=== PATIENT | male | born 1960 | race Caucasian/White ===

== ENCOUNTER 2018-12-23 10:25 | Inpatient (IN) | payer MEDICARE, MEDICAID ==
[2018-12-23 12:01] LABS: ABS Eosinophils 0.2 10^3/ul (0-0.6); ABS Lymphocytes 0.7 10^3/ul (1.0-4.8); ABS Monocytes 0.8 10^3/ul (0-0.8); ABS Neutrophils 5.4 10^3/ul (1.5-7.7); Eosinophil % 2.7 %; Hematocrit 36 % (42-52); Hemoglobin 12.3 g/dL (14.0-18.0); Lymphocyte % 9.2 %; Mean Corpuscular HGB Conc 34 g/dL (31-36); Mean Corpuscular Hemoglobin 32 pg (27-31); Mean Corpuscular Volume 93 fL (80-94); Mean Platelet Volume 9.1 fL (7.4-10.4); Nucleated Red Blood Cells % 0.1; Platelet Count 246 10^3/uL (150-450); Red Blood Count 3.88 10^6 /uL (4.18-5.48); Red Cell Distribution Width 17 % (10-15); White Blood Count 7.1 10^3/uL (3.5-10.8)
[2018-12-23 12:22] LABS: ALT 134 U/L (7-52); AST 145 U/L (13-39); Albumin 3.5 g/dL (3.2-5.2); Albumin/Globulin Ratio 1.5 (1-3); Alkaline Phosphatase 664 U/L (34-104); Anion Gap 6 mmol/L (2-11); BUN/Creatinine Ratio 34.2 (8-20); Blood Urea Nitrogen 40 mg/dL (6-24); CO2 Carbon Dioxide 27 mmol/L (22-32); Calcium 9.3 mg/dL (8.6-10.3); Chloride 103 mmol/L (101-111); EGFR African American 77.7 (>60); EGFR Non-African American 64.3 (>60); Globulin 2.3 g/dL (2-4); Glucose 101 mg/dL (70-100); Potassium 4.2 mmol/L (3.5-5.0); Sodium 136 mmol/L (135-145); Total Protein 5.8 g/dL (6.4-8.9)
[2018-12-23 12:36] LABS: Acetaminophen < 15 mcg/mL; Alcohol < 10 mg/dL (<10); Salicylate < 2.50 mg/dL (<30)
[2018-12-23 12:41] LABS: Urine Appearance Clear; Urine Bacteria Absent (Absent); Urine Bilirubin Negative (Negative); Urine Blood 2+ (Negative); Urine Color Amber; Urine Glucose Negative (Negative); Urine Ketones Negative (Negative); Urine Nitrite Negative (Negative); Urine Protein Negative (Negative); Urine Red Blood Cell 3+(>10/hpf) (Absent); Urine Specific Gravity 1.017 (1.010-1.030); Urine Squamous Epithelial Cell Present (Absent); Urine Urobilinogen Positive (Negative); Urine White Blood Cell Trace(0-5/hpf) (Absent)
[2018-12-23 12:51] LABS: TSH (Thyroid Stimulating Horm) 0.63 mcIU/mL (0.34-5.60)
[2018-12-23 12:59] LABS: Urine Benzodiazepine Screen None Detected (None Detect); Urine Opiates Screen None Detected (None Detect)
[2018-12-23 13:42] LABS: Amylase 27 U/L (29-103); Indirect Bilirubin 4.6 mg/dL (0.3-1.0)
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
[2018-12-23] MEDS ORDERED: Iohexol 300* (CONTRAST) 10 ML SDV IV ONE (15:03)
[2018-12-23 17:54] LABS: INR 0.93 (0.82-1.09)
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
[2018-12-24] MEDS: CMCS:Dabigatran CAP(NF) 150 MG CAP PO SCH ×3 (00:41→22:16)
[2018-12-24] MEDS: Cholestyramine Resin* 4 GM POWDER PO SCH ×3 (00:41→22:17)
[2018-12-24] MEDS: Metoprolol Tartrate TAB* 100 MG TAB PO SCH ×3 (00:42→22:16)
--- NOTE | 2018-12-24 04:16 | HP ---
HISTORY AND PHYSICAL: DATE OF ADMISSION: 12/23/18 PRIMARY CARE PROVIDER: There is a note from Dr. Jose Butcher of [place], [place]. ADMITTING PROVIDER: Lionel Berry MD. Please note that Dr. Nikki Linares also has consulted on the patient in the emergency room. CHIEF COMPLAINT: Leg pain, itching, bed bugs. HISTORY OF PRESENT ILLNESS: Abundio Prado is a 58-year-old male with past medical history of atrial fibrillation on Pradaxa, paranoid schizophrenia, overactive bladder, hypertension, hyperlipidemia, who is a resident of [facility] and a limited historian. PMH also includes COPD, former smoker approximately 35 to 40 pack years, obstructive sleep apnea, chronic kidney disease stage 3, GERD, and diabetes mellitus type 2. He complains of itching over the last few weeks and had concern that his legs being injected with 100 mg of [place] corn oil. He does not know the name of the person who did this but they are related to "Chelsea Ryan". He was referred for psychiatric mental health evaluation by [facility] and also had been fixated on bed bugs and that "the NIKHIL is coming to burn his house down". There were no bed bugs found in this room. He was yelling at the staff, seemed anxious and paranoid, but refusing to see Psychiatry. He was noted to be jaundiced on presentation to [facility] Emergency Room and then had eventually a bilirubin of 11.1. His gallbladder ultrasound showed dilatation of the intrahepatic ducts and more mild dilatation of the hepatopancreatic duct. Dr. Almonte or other mental health personnel, possibly Maegan Cuadra and given the lab abnormalities, consultation with hospitalist service. At that time, he has also had a CT abdomen and pelvis with and without contrast that showed 2.7 cm of pancreatic head mass causing compression of the common bile duct and there was recommendation for admission to Behavioral Health Unit with eventual non-urgent ERCP/EUS for further evaluation of the pancreatic head mass given his otherwise clinical stability. Hemodynamically, no leukocytosis or fevers. Reportedly, Mental Health has refused the admission to their facilities and therefore is re-presented to hospitalist service for admission for further workup of his pancreatic head mass and in the setting of active paranoid delusions. He denies any fevers, chills, has had leg pain for the last 3 days and believes he has an infection there as he can feel the white blood cells in the area. PAST MEDICAL HISTORY: 1. Atrial fibrillation. 2. Paranoid schizophrenia. 3. Hypertension. 4. CKD stage 3. 5. Diabetes mellitus type 2. 6. COPD. 7. Former smoker. 8. Obstructive sleep apnea. 9. Hyperlipidemia. 10. GERD. 11. Overactive bladder. MEDICATIONS: Include: 1. Pradaxa 150 mg p.o. b.i.d. 2. Tolterodine tartrate 4 mg 1 tab p.o. daily. 3. Atorvastatin 10 mg daily. 4. Metoprolol 100 mg p.o. b.i.d. 5. Diltiazem 240 mg p.o. a.m. 6. Calcium and vitamin D 600/400 mg Tuesday and Fridays. 7. Docusate 100 mg p.o. b.i.d. 8. Digoxin 125 mg daily. ALLERGIES: Include HEPARIN, GEODON (leg swelling), PROLIXIN (respiratory issues ). FAMILY HISTORY: Unknown in this tangential historian at the moment. SOCIAL HISTORY: The patient does attest to quitting smoking 8 years ago after 35 to 40 years of [id number] day smoking. He denies any alcohol use. Per previous notes, his medical surrogate has been determined to be Alejandra Veliz , phone number [phone] who is his niece. He personally states that he does not have a medical surrogate. He is a full code. REVIEW OF SYSTEMS: Limited as he is a tangential historian, but denies any chest pain, shortness of breath. PHYSICAL EXAMINATION GENERAL APPEARANCE: No acute distress. Walking, sitting in chair. HEENT: Normocephalic, atraumatic. Pupils equally round and reactive to light. Extraocular motions intact. No scleral icterus. LUNGS: Clear to auscultation bilaterally. No wheezing, rales or rhonchi. CARDIOVASCULAR: Irregularly irregular. No murmurs, rubs, or gallops. ABDOMEN: Soft, nontender, nondistended. No rebound. No guarding. No Andrew sign. EXTREMITIES: Warm, well perfused beside 2+ pitting edema in the dependent lower legs. NEUROLOGIC: Cranial nerves II through XII intact. Moving all extremities. SKIN: Excoriations in the lower legs. DIAGNOSTIC STUDIES/LAB DATA: White count 7.1, hemoglobin 12.3, hematocrit 36, platelets 246, INR 0.93. Sodium 136, potassium 4.2, chloride 103, carbon dioxide 27, BUN 40, creatinine 1.17, glucose 101, total bili 11.1, direct bili is 6.5, indirect bili 4.6. AST is 145, ALT 134, alk phos 664, 34. BNP 110, total protein 5.8, albumin 3.5, amylase 27, lipase 42, TSH 0.63. Urinalysis; 2+ blood, positive urobilinogen, 3+ rbc's. Toxicology, salicylate less than 2.5, acetaminophen less than 15, serum alcohol less than 10, no other substance detected on urine screen. Imaging: Gallbladder ultrasound demonstrated pathologic dilatation of the intrahepatic biliary ducts as well as more mild dilatation of the pancreatic duct. No definitive structure mass or gallbladder stone was identified to account for the appearance, further characterization could be made with 4-phase CT of the abdomen or MRCP. CT abdomen and pelvis with and without contrast with arterial portal venous phase and delayed phase in between the abdomen demonstrated a 2.7 cm pancreatic head mass that appears to be causing compression of the common bile duct, yielding massive dilatation of the biliary ducts as well as the gallbladder, this does not seem to be malignancy until proven otherwise. Tissue sampling can be most likely be achieved with endoscopy. There does not appear to be any direct involvement with the superior mesenteric vein or the portal veins. The mass does not appear to involve the superior mesenteric artery. Three multifocal infiltrates of the lateral aspect of the right lower lobe as a tree- in-bud appearance that can be seen in the setting of atypical pneumonia such as mycoplasma. EKG demonstrated atrial fibrillation, right bundle-branch block, heart rate 80, no ST elevations or depressions. ASSESSMENT AND PLAN: Abundio Prado is a 58-year-old male with a past medical history of AFib, paranoid schizophrenia, hypertension, hyperlipidemia, COPD, WILL , GERD, CKD stage 3, presenting with itching, concern for bed bugs, was found to be jaundiced with direct bili of 6.5, T-bili of 11.1, and 2.7 cm pancreatic head mass concerning for new pancreatic cancer. He was seen earlier today by Dr. Linares and cleared medically for admission for Mental Health, but the patient was not accepted by Mental Health. Therefore, we presented to admission for hospitalist service. For further workup of this pancreatic head mass, we will consult Dr. Baeza when he is available to get ERCP/EUS for further tissue sampling. I will get liver function test daily. He is clinically stable now, but does have some risk for decompensation given the extrinsic compression of the common bile duct. We will start him on cholestyramine 4 mg p.o. b.i.d. for his itching. For his new bilateral lower extremity pitting edema, there has been Dopplers ordered to rule out DVT bilaterally in the setting of suspicion for cancer. We will continue his Pradaxa for now. For his atrial fibrillation, we will continue his home medications including Diltiazem CD 240 mg p.o. daily, metoprolol tartrate 100 mg p.o. twice a day, digoxin 0.125 mg p.o. daily, Pradaxa 150 mg p.o. twice a day. For his paranoid schizophrenia, he has been refusing any outpatient medications. Dr. Almonte and his psychiatric team will continue to follow the patient and he may need mental health/U admission after his medical admission. He had already been cleared medically for such an admission. For DVT prophylaxis, we will just continue his Pradaxa. For his history of reported diabetes mellitus, he has no evidence of hyperglycemia here. We will just check BMP daily. He is a full code. Medical surrogate is reportedly his niece, Alejandra Amaya. [id number]/[facility] #: [id number] MTDD
[2018-12-24 07:52] LABS: ABS Basophils 0.1 10^3/ul (0-0.2); ABS Eosinophils 0.3 10^3/ul (0-0.6); ABS Lymphocytes 0.8 10^3/ul (1.0-4.8); ABS Monocytes 0.9 10^3/ul (0-0.8); ABS Neutrophils 5.2 10^3/ul (1.5-7.7); Eosinophil % 4.6 %; Hematocrit 38 % (42-52); Hemoglobin 13.2 g/dL (14.0-18.0); Lymphocyte % 10.9 %; Mean Corpuscular HGB Conc 35 g/dL (31-36); Mean Corpuscular Hemoglobin 33 pg (27-31); Mean Corpuscular Volume 93 fL (80-94); Platelet Count 238 10^3/uL (150-450); Red Blood Count 4.04 10^6 /uL (4.18-5.48); Red Cell Distribution Width 17 % (10-15); White Blood Count 7.3 10^3/uL (3.5-10.8)
[2018-12-24] MEDS: Docusate CAP* 100 MG PO SCH ×2 (08:04→22:23)
[2018-12-24] MEDS: Diltiazem CD CAP* 240 MG PO SCH (08:04)
[2018-12-24] MEDS: Oxybutynin XL TAB* 5 MG PO SCH (08:04)
[2018-12-24 08:09] LABS: Albumin 3.5 g/dL (3.2-5.2); Calcium 8.9 mg/dL (8.6-10.3); Potassium 4.4 mmol/L (3.5-5.0)
[2018-12-24 08:13] LABS: Indirect Bilirubin 5.2 mg/dL (0.3-1.0); Total Bilirubin 13.2 mg/dL (0.2-1.0)
[2018-12-24 08:15] LABS: Albumin/Globulin Ratio 1.5 (1-3); BUN/Creatinine Ratio 27.1 (8-20); EGFR African American 69.5 (>60); EGFR Non-African American 57.4 (>60); Globulin 2.4 g/dL (2-4); Total Protein 5.9 g/dL (6.4-8.9)
--- NOTE | 2018-12-24 08:46 | PN ---
Subjective Date of Service: 12/24/18 Interval History: Pt is feeling what he describes as worse this AM but he continues to c/o the same issues. He states his legs are swollen and he is itching all over. Objective Active Medications: Cholestyramine Resin (Questran*) 4 gm PO BID [facility] Last Admin: 12/24/18 08:04 Dose: 4 gm Dabigatran (Pradaxa Cap(Nf)) 150 mg PO BID [facility] Last Admin: 12/24/18 08:04 Dose: 150 mg Digoxin (Lanoxin Tab*) 0.125 mg PO DAILY@1700 [facility] Diltiazem HCl (Cardizem Cd Cap*) 240 mg PO DAILY [facility] Last Admin: 12/24/18 08:04 Dose: 240 mg Docusate Sodium (Colace Cap*) 100 mg PO BID [facility] Last Admin: 12/24/18 08:04 Dose: 100 mg Metoprolol Tartrate (Lopressor Tab*) 100 mg PO BID [facility] Last Admin: 12/24/18 08:04 Dose: 100 mg Oxybutynin Chloride (Ditropan Xl Tab*) 10 mg PO DAILY [facility] Last Admin: 12/24/18 08:04 Dose: 10 mg Vital Signs - 8 hr 12/24/18 12/24/18 12/24/18 00:43 02:22 07:28 Temperature 97.6 F 97.2 F 97.6 F Pulse Rate 88 98 72 Respiratory 20 16 24 Rate Blood Pressure 113/62 121/79 136/83 (mmHg) O2 Sat by Pulse 98 99 98 Oximetry Oxygen Devices in Use Now: None Appearance: Middle aged male sitting on the edge of the bed, NAD Eyes: - - + Respiratory: Symmetrical Chest Expansion and Respiratory Effort, Clear to Auscultation Cardiovascular: NL Sounds; No Murmurs; No JVD, RRR, - - 2+ B/L LE edema Abdominal: NL Sounds; No Tenderness; No Distention Extremities: No Clubbing, Cyanosis Skin: No Nodules or Sclerosis Neurological: Alert and Oriented x 3, - - he doesn't make any delusional statements at this time Result Diagrams: 12/24/18 07:43 12/24/18 07:43 Additional Lab and Data: Lab Results 12/23/18 12/23/18 12/23/18 Range/Units 11:56 11:56 11:56 WBC 7.1 (3.5-10.8) 10^3/uL RBC 3.88 L (4.18-5.48) 10^6 /uL Hgb 12.3 L (14.0-18.0) g/dL Hct 36 L (42-52) % MCV 93 (80-94) fL MCH 32 H (27-31) pg MCHC 34 (31-36) g/dL RDW 17 H (10-15) % Plt Count 246 (150-450) 10^3/uL MPV 9.1 (7.4-10.4) fL Neut % (Auto) 76.7 % Lymph % (Auto) 9.2 % [place] % (Auto) 10.9 % Eos % (Auto) 2.7 % Baso % (Auto) 0.5 % Absolute Neuts (auto) 5.4 (1.5-7.7) 10^3/ul Absolute Lymphs (auto) 0.7 L (1.0-4.8) 10^3/ul Absolute Monos (auto) 0.8 (0-0.8) 10^3/ul Absolute Eos (auto) 0.2 (0-0.6) 10^3/ul Absolute Basos (auto) 0.0 (0-0.2) 10^3/ul Absolute Nucleated RBC 0.0 10^3/ul Nucleated RBC % 0.1 Sodium 136 (135-145) mmol/L Potassium 4.2 (3.5-5.0) mmol/L Chloride 103 (101-111) mmol/L Carbon Dioxide 27 (22-32) mmol/L Anion Gap 6 (2-11) mmol/L BUN 40 H (6-24) mg/dL Creatinine 1.17 (0.67-1.17) mg/dL Est GFR ( Amer) 77.7 (>60) Est GFR (Non-Af Amer) 64.3 (>60) BUN/Creatinine Ratio 34.2 H (8-20) Glucose 101 H (70-100) mg/dL Calcium 9.3 (8.6-10.3) mg/dL Total Bilirubin 11.10 H (0.2-1.0) mg/dL Direct Bilirubin 6.50 H (0.03-0.18) mg/dL Indirect Bilirubin 4.6 H (0.3-1.0) mg/dL AST 145 H (13-39) U/L ALT 134 H (7-52) U/L Alkaline Phosphatase 664 H (34-104) U/L B-Natriuretic Peptide 110 H (<=100) pg/mL Total Protein 5.8 L (6.4-8.9) g/dL Albumin 3.5 (3.2-5.2) g/dL Globulin 2.3 (2-4) g/dL Albumin/Globulin Ratio 1.5 (1-3) Amylase 27 L (29-103) U/L Lipase 42 (11.0-82.0) U/L TSH 0.63 (0.34-5.60) mcIU/mL Urine Color Urine Appearance Urine pH (5-9) Ur Specific [place] (1.010-1.030) Urine Protein (Negative) Urine Ketones (Negative) Urine Blood (Negative) Urine Nitrate (Negative) Urine Bilirubin (Negative) Urine Urobilinogen (Negative) Ur Leukocyte Esterase (Negative) Urine WBC (Auto) (Absent) Urine RBC (Auto) (Absent) Ur Squamous Epith Cells (Absent) Urine Bacteria (Absent) Urine Glucose (Negative) Urine Ascorbic Acid (Negative) Salicylates < 2.50 (<30) mg/dL Urine Opiates Screen (None Detect) Acetaminophen < 15 mcg/mL Ur Barbiturates Screen (None Detect) Ur Phencyclidine Scrn (None Detect) Ur Amphetamines Screen (None Detect) U Benzodiazepines Scrn (None Detect) Urine Cocaine Screen (None Detect) U Cannabinoids Screen (None Detect) Serum Alcohol < 10 (<10) mg/dL 12/23/18 12/23/18 Range/Units 12:22 12:22 WBC (3.5-10.8) 10^3/uL RBC (4.18-5.48) 10^6 /uL Hgb (14.0-18.0) g/dL Hct (42-52) % MCV (80-94) fL MCH (27-31) pg MCHC (31-36) g/dL RDW (10-15) % Plt Count (150-450) 10^3/uL MPV (7.4-10.4) fL Neut % (Auto) % Lymph % (Auto) % [place] % (Auto) % Eos % (Auto) % Baso % (Auto) % Absolute Neuts (auto) (1.5-7.7) 10^3/ul Absolute Lymphs (auto) (1.0-4.8) 10^3/ul Absolute Monos (auto) (0-0.8) 10^3/ul Absolute Eos (auto) (0-0.6) 10^3/ul Absolute Basos (auto) (0-0.2) 10^3/ul Absolute Nucleated RBC 10^3/ul Nucleated RBC % Sodium (135-145) mmol/L Potassium (3.5-5.0) mmol/L Chloride (101-111) mmol/L Carbon Dioxide (22-32) mmol/L Anion Gap (2-11) mmol/L BUN (6-24) mg/dL Creatinine (0.67-1.17) mg/dL Est GFR ( Amer) (>60) Est GFR (Non-Af Amer) (>60) BUN/Creatinine Ratio (8-20) Glucose (70-100) mg/dL Calcium (8.6-10.3) mg/dL Total Bilirubin (0.2-1.0) mg/dL Direct Bilirubin (0.03-0.18) mg/dL Indirect Bilirubin (0.3-1.0) mg/dL AST (13-39) U/L ALT (7-52) U/L Alkaline Phosphatase (34-104) U/L B-Natriuretic Peptide (<=100) pg/mL Total Protein (6.4-8.9) g/dL Albumin (3.2-5.2) g/dL Globulin (2-4) g/dL Albumin/Globulin Ratio (1-3) Amylase (29-103) U/L Lipase (11.0-82.0) U/L TSH (0.34-5.60) mcIU/mL Urine Color [place] Urine Appearance Clear Urine pH 6.0 (5-9) Ur Specific [place] 1.017 (1.010-1.030) Urine Protein Negative (Negative) Urine Ketones Negative (Negative) Urine Blood 2+ A (Negative) Urine Nitrate Negative (Negative) Urine Bilirubin Negative (Negative) Urine Urobilinogen Positive A (Negative) Ur Leukocyte Esterase Negative (Negative) Urine WBC (Auto) Trace(0-5/hpf) (Absent) Urine RBC (Auto) 3+(>10/hpf) A (Absent) Ur Squamous Epith Cells Present A (Absent) Urine Bacteria Absent (Absent) Urine Glucose Negative (Negative) Urine Ascorbic Acid * A (Negative) Salicylates (<30) mg/dL Urine Opiates Screen None detected (None Detect) Acetaminophen mcg/mL Ur Barbiturates Screen None detected (None Detect) Ur Phencyclidine Scrn None detected (None Detect) Ur Amphetamines Screen None detected (None Detect) U Benzodiazepines Scrn None detected (None Detect) Urine Cocaine Screen None detected (None Detect) U Cannabinoids Screen None detected (None Detect) Serum Alcohol (<10) mg/dL Microbiology and Other Data: Microbiology 12/24/18 05:45 Nasal Screen MRSA (PCR) - Final Nasal Mrsa Not Detected Assess/Plan/Problems-Billing Mr Prado is a 58 yo M who has a h/o paranoid schizophrenia not on any medications and afib who presented to the ER with c/o itching from what he thought was bugs in his bed but was found to have hyperbilirubinemia and on imaging found to have a 2.7cm pancreatic head mass. - Patient Problems (1) Pancreatic mass Current Visit: Yes Status: Acute Comment: Pt needs ERCP for stent and possible EUS for biopsy. Likely pancreatic carcinoma. These are non-urgent evaluations that need to be done. Tomorrow can speak to GI about timing of ERCP. (2) Afib Current Visit: Yes Status: Acute Code(s): I48.91 - UNSPECIFIED ATRIAL FIBRILLATION SNOMED Code(s): 72287554 Comment: HR uncontrolled this AM. He did not get his metoprolol last evening. Continue diltiazem, metoprolol, digoxin and pradaxa. (3) Paranoid schizophrenia Current Visit: Yes Status: Acute Code(s): F20.0 - PARANOID SCHIZOPHRENIA SNOMED Code(s): 31825645 Comment: Pt evaluated in ER and was felt to need admission to [facility]. I have a call out to Dr Almonte to discuss his case and possible admission to [facility] today. (4) DVT prophylaxis Current Visit: Yes Status: Acute Code(s): Z29.9 - ENCOUNTER FOR PROPHYLACTIC MEASURES, UNSPECIFIED SNOMED Code(s): 859801195 Comment: pradaxa (5) Full code status Current Visit: Yes Status: Acute Code(s): Z78.9 - OTHER SPECIFIED HEALTH STATUS SNOMED Code(s): 021106058
[2018-12-24 08:55] LABS: Digoxin 0.9 ng/ml (0.8-2.0)
[2018-12-24] MEDS: Digoxin TAB* 0.125 MG PO SCH (17:18)
[2018-12-25 07:32] LABS: ABS Eosinophils 0.3 10^3/ul (0-0.6); ABS Lymphocytes 0.7 10^3/ul (1.0-4.8); ABS Monocytes 0.9 10^3/ul (0-0.8); ABS Neutrophils 4.9 10^3/ul (1.5-7.7); Eosinophil % 4.6 %; Hematocrit 36 % (42-52); Hemoglobin 12.5 g/dL (14.0-18.0); Lymphocyte % 10.7 %; Mean Corpuscular HGB Conc 35 g/dL (31-36); Mean Corpuscular Hemoglobin 32 pg (27-31); Mean Corpuscular Volume 93 fL (80-94); Mean Platelet Volume 9.5 fL (7.4-10.4); Nucleated Red Blood Cells % 0.1; Platelet Count 259 10^3/uL (150-450); Red Blood Count 3.84 10^6 /uL (4.18-5.48); Red Cell Distribution Width 18 % (10-15); White Blood Count 6.9 10^3/uL (3.5-10.8)
[2018-12-25 07:44] LABS: Albumin 3.4 g/dL (3.2-5.2); Albumin/Globulin Ratio 1.5 (1-3); BUN/Creatinine Ratio 28.9 (8-20); Calcium 8.9 mg/dL (8.6-10.3); EGFR African American 74.8 (>60); EGFR Non-African American 61.8 (>60); Globulin 2.3 g/dL (2-4); Potassium 4.1 mmol/L (3.5-5.0); Total Protein 5.7 g/dL (6.4-8.9)
[2018-12-25 07:46] LABS: Indirect Bilirubin 6.5 mg/dL (0.3-1.0); Total Bilirubin 16.2 mg/dL (0.2-1.0)
[2018-12-25] MEDS: CMCS:Dabigatran CAP(NF) 150 MG CAP PO SCH (09:11)
[2018-12-25] MEDS: Oxybutynin XL TAB* 5 MG PO SCH (09:12)
[2018-12-25] MEDS: Metoprolol Tartrate TAB* 100 MG TAB PO SCH ×2 (09:12→21:27)
[2018-12-25] MEDS: Diltiazem CD CAP* 240 MG PO SCH (09:12)
[2018-12-25] MEDS: Docusate CAP* 100 MG PO SCH (09:12)
--- NOTE | 2018-12-25 11:00 | HP ---
H&P (Free Text) History and Physical: Justification for admission: Immediate Safety. CC " I am here for medical reasons" The patient was brought to [facility] by staff at [facility] when he told staff that he saw bugs crawling all over him and accusing staff of injecting corn oil into his legs. Patient expressed having a argument with a staff member at [facility]. He stated that he would ask her questions and she did not like it. He denied taking psychiatric medications recently. At the current time the patient endorsed feeling itchy and denied seeing and or feeling bugs crawling on him. Patient reported " I think I have bullets inside of me." Patient stated " I know what schizophrenia is, its when someone has anal sex and puts male semen in the rectum" He denied access to firearms or stockpiles of medications. He reported having poor sleep. He reported not changes in appetite. He is complaining of loose stool. He denied fever chest pain shortness of breath. The patient denied suicidal and or homicidal ideation intent or plan. The patient denied auditory and/ or visual hallucinations. Patient was unable to participate in psychiatric review of systems PAST PSYCHIATRIC HISTORY: Prior Diagnosis : Schizophrenia History of past Psychiatric Hospitalizations: [facility] [address] History of past suicide/homicide attempts : Denied past suicide attempts. Denied past homicidal incidents. Outpatient follow-up: None Medications: Past trials of medications include zyprexa, haldol, depakote, abilify Guardianship: None. FAMILY HISTORY: - Suicide: Denied family history of suicide. - Mental illness: Denied a history of mental health in immediate family members. - Substance abuse: Brother has alcoholism SUBSTANCE ABUSE HISTORY: Denied using alcohol, tobacco, heroin cocaine or other illicit substances. Denied abusing pills for recreational use. Denied past Substance abuse treatment. SOCIAL HISTORY: Born in and raised in [facility]. He reported being and having 4 daughters. He is currently living at [facility]. 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 - Legal history: Denied - service history: Denied PAST MEDICAL HISTORY: Atrial fibrillation, hypertension, stage III CK D, type 2 diabetes, COPD, WILL, HCl, GERD, overactive bladder, constipation, paranoid schizophrenia. - Allergies: Fluphenazine, heparin, ziprasidone Physical Exam: Please see ED note Mental Status Exam on Admission APPEARANCE : 58 year old who appears stated age. Patient appears to poor hygiene and grooming. BEHAVIOR: Cooperative , calm EYE CONTACT: Fair PSYCHOMOTOR ACTIVITY: No psychomotor agitation or retardation. MOVEMENTS: No abnormal movements observed. SPEECH : Normal rate, rhythm, volume and tone. MOOD : "Fine " AFFECT : Type is dysphoric. Range is blunted with shallow depth Mood Incongruent THOUGHT PROCESS: Formulated and organized in a illogical, manner. Tangential with loose associations , THOUGHT CONTENT: multiple delusions PERCEPTION: No current auditory or visual hallucinations. Doesnt appear to be responding to internal cues. SUICIDALITY Denied suicidal ideation, intent or plan. HOMICIDALITY Denied homicidal ideation, intent or plan. Insight/judgment: Poor insight and judgment ORIENTATION: Oriented to self, location, and time. Diagnosis on Admission: Schizophrenia Assessment: 58 year old male with history of schizophrenia non compliant with medications came to the hospital and was admitted to the BSU at [facility]. Plan #Admit to BSU, Q15 minute observation. Start regular diet. Encourage participation in activities on the milieu. #Patient evaluated in ED and was determined by the emergency room Physician to be medically fit for admission to the BSU. # Justification for Admission: For immediate safety per outlined in the [employer] Mental Hygiene Code. # The patient requires psychiatric inpatient admission at this time to assure safety, receive treatment and work toward stabilization. # Labs ordered: CBC, CMP, UDS, TSH, HBA1c, TSH, Toxicology screen, Urine analysis, and lipid profile. # EKG ordered for history of A fib # Obtain prior medical records and collateral from [facility]. # Obtain collateral information once release is signed. # Collaboration with Stores Despatch Hand Cora Starr # Medicine consult to address active medical issues #Goals before discharge include: Psychiatric stabilization The risks, benefits, and alternative treatment options were discussed as well as of the risks of refusing treatment. After this discussion and an acknowledgement of this understanding was made. A risk/ benefit assessment of treatment was considered and discussed with the patient. When comparing the risks of treatment with the dangers of not receiving treatment, the benefits of treatment outweigh the treatment risks at this time. Risks of allergy, suicidal ideation, behavioral changes, dystonia, rashes, electrolyte imbalances, movement disorders, cardiac conduction changes, serotonin syndrome, metabolic risks and NMS were among some of the risks discussed. Aripiprazole (Abilify Tab*) 10 mg PO DAILY [facility] Cholestyramine Resin (Questran*) 4 gm PO BID@1100,2300 [facility] Last Admin: 12/25/18 11:54 Dose: 4 gm Dabigatran (Pradaxa Cap(Nf)) 150 mg PO BID [facility] Last Admin: 12/25/18 09:11 Dose: 150 mg Digoxin (Lanoxin Tab*) 0.125 mg PO DAILY@1700 [facility] Last Admin: 12/24/18 17:18 Dose: 0.125 mg Diltiazem HCl (Cardizem Cd Cap*) 240 mg PO DAILY [facility] Last Admin: 12/25/18 09:12 Dose: 240 mg Metoprolol Tartrate (Lopressor Tab*) 100 mg PO BID [facility] Last Admin: 12/25/18 09:12 Dose: 100 mg Oxybutynin Chloride (Ditropan Xl Tab*) 10 mg PO DAILY [facility] Last Admin: 12/25/18 09:12 Dose: 10 mg Vital Signs Temp Pulse Resp BP Pulse Ox 97.8 F 63 16 118/72 100 12/25/18 08:00 12/25/18 08:00 12/25/18 08:00 12/25/18 08:00 12/25/18 08:00 12/23/18 12/23/18 12/23/18 11:56 11:56 11:56 WBC 7.1 RBC 3.88 L Hgb 12.3 L Hct 36 L MCV 93 MCH 32 H MCHC 34 RDW 17 H Plt Count 246 MPV 9.1 Neut % (Auto) 76.7 Lymph % (Auto) 9.2 [place] % (Auto) 10.9 Eos % (Auto) 2.7 Baso % (Auto) 0.5 Absolute Neuts (auto) 5.4 Absolute Lymphs (auto) 0.7 L Absolute Monos (auto) 0.8 Absolute Eos (auto) 0.2 Absolute Basos (auto) 0.0 Absolute Nucleated RBC 0.0 Nucleated RBC % 0.1 INR (Anticoag Therapy) Sodium 136 Potassium 4.2 Chloride 103 Carbon Dioxide 27 Anion Gap 6 BUN 40 H Creatinine 1.17 Est GFR ( Amer) 77.7 Est GFR (Non-Af Amer) 64.3 BUN/Creatinine Ratio 34.2 H Glucose 101 H Calcium 9.3 Magnesium Total Bilirubin 11.10 H Direct Bilirubin 6.50 H Indirect Bilirubin 4.6 H AST 145 H ALT 134 H Alkaline Phosphatase 664 H Ammonia B-Natriuretic Peptide 110 H Total Protein 5.8 L Albumin 3.5 Globulin 2.3 Albumin/Globulin Ratio 1.5 Amylase 27 L Lipase 42 TSH 0.63 Urine Color Urine Appearance Urine pH Ur Specific Be[place] Urine Protein Urine Ketones Urine Blood Urine Nitrate Urine Bilirubin Urine Urobilinogen Ur Leukocyte Esterase Urine WBC (Auto) Urine RBC (Auto) Ur Squamous Epith Cells Urine Bacteria Urine Glucose Urine Ascorbic Acid Digoxin Salicylates < 2.50 Urine Opiates Screen Acetaminophen < 15 Ur Barbiturates Screen Ur Phencyclidine Scrn Ur Amphetamines Screen U Benzodiazepines Scrn Urine Cocaine Screen U Cannabinoids Screen Serum Alcohol < 10 12/23/18 12/23/18 12/23/18 12:22 12:22 15:12 WBC RBC Hgb Hct MCV MCH MCHC RDW Plt Count MPV Neut % (Auto) Lymph % (Auto) [place] % (Auto) Eos % (Auto) Baso % (Auto) Absolute Neuts (auto) Absolute Lymphs (auto) Absolute Monos (auto) Absolute Eos (auto) Absolute Basos (auto) Absolute Nucleated RBC Nucleated RBC % INR (Anticoag Therapy) Sodium Potassium Chloride Carbon Dioxide Anion Gap BUN Creatinine Est GFR ( Amer) Est GFR (Non-Af Amer) BUN/Creatinine Ratio Glucose Calcium Magnesium Total Bilirubin Direct Bilirubin Indirect Bilirubin AST ALT Alkaline Phosphatase Ammonia 34 B-Natriuretic Peptide Total Protein Albumin Globulin Albumin/Globulin Ratio Amylase Lipase TSH Urine Color Nadya Urine Appearance Clear Urine pH 6.0 Ur Specific [place] 1.017 Urine Protein Negative Urine Ketones Negative Urine Blood 2+ A Urine Nitrate Negative Urine Bilirubin Negative Urine Urobilinogen Positive A Ur Leukocyte Esterase Negative Urine WBC (Auto) Trace(0-5/hpf) Urine RBC (Auto) 3+(>10/hpf) A Ur Squamous Epith Cells Present A Urine Bacteria Absent Urine Glucose Negative Urine Ascorbic Acid * A Digoxin Salicylates Urine Opiates Screen None detected Acetaminophen Ur Barbiturates Screen None detected Ur Phencyclidine Scrn None detected Ur Amphetamines Screen None detected U Benzodiazepines Scrn None detected Urine Cocaine Screen None detected U Cannabinoids Screen None detected Serum Alcohol 12/23/18 12/24/18 12/24/18 17:35 07:43 07:43 WBC 7.3 RBC 4.04 L Hgb 13.2 L Hct 38 L MCV 93 MCH 33 H MCHC 35 RDW 17 H Plt Count 238 MPV 9.0 Neut % (Auto) 71.9 Lymph % (Auto) 10.9 [place] % (Auto) 11.8 Eos % (Auto) 4.6 Baso % (Auto) 0.8 Absolute Neuts (auto) 5.2 Absolute Lymphs (auto) 0.8 L Absolute Monos (auto) 0.9 H Absolute Eos (auto) 0.3 Absolute Basos (auto) 0.1 Absolute Nucleated RBC 0.0 Nucleated RBC % 0.0 INR (Anticoag Therapy) 0.93 Sodium 135 Potassium 4.4 Chloride 104 Carbon Dioxide 24 Anion Gap 7 BUN 35 H Creatinine 1.29 H Est GFR ( Amer) 69.5 Est GFR (Non-Af Amer) 57.4 BUN/Creatinine Ratio 27.1 H Glucose 89 Calcium 8.9 Magnesium 2.0 Total Bilirubin 13.20 H* D Direct Bilirubin 8.00 H Indirect Bilirubin 5.2 H AST 132 H ALT 126 H Alkaline Phosphatase 709 H Ammonia B-Natriuretic Peptide Total Protein 5.9 L Albumin 3.5 Globulin 2.4 Albumin/Globulin Ratio 1.5 Amylase Lipase TSH Urine Color Urine Appearance Urine pH Ur Specific Beaver Urine Protein Urine Ketones Urine Blood Urine Nitrate Urine Bilirubin Urine Urobilinogen Ur Leukocyte Esterase Urine WBC (Auto) Urine RBC (Auto) Ur Squamous Epith Cells Urine Bacteria Urine Glucose Urine Ascorbic Acid Digoxin 0.9 Salicylates Urine Opiates Screen Acetaminophen Ur Barbiturates Screen Ur Phencyclidine Scrn Ur Amphetamines Screen U Benzodiazepines Scrn Urine Cocaine Screen U Cannabinoids Screen Serum Alcohol 12/25/18 12/25/18 06:59 06:59 WBC 6.9 RBC 3.84 L Hgb 12.5 L Hct 36 L MCV 93 MCH 32 H MCHC 35 RDW 18 H Plt Count 259 MPV 9.5 Neut % (Auto) 71.7 Lymph % (Auto) 10.7 [place] % (Auto) 12.5 Eos % (Auto) 4.6 Baso % (Auto) 0.5 Absolute Neuts (auto) 4.9 Absolute Lymphs (auto) 0.7 L Absolute Monos (auto) 0.9 H Absolute Eos (auto) 0.3 Absolute Basos (auto) 0.0 Absolute Nucleated RBC 0.0 Nucleated RBC % 0.1 INR (Anticoag Therapy) Sodium 134 L Potassium 4.1 Chloride 102 Carbon Dioxide 25 Anion Gap 7 BUN 35 H Creatinine 1.21 H Est GFR ( Amer) 74.8 Est GFR (Non-Af Amer) 61.8 BUN/Creatinine Ratio 28.9 H Glucose 85 Calcium 8.9 Magnesium Total Bilirubin 16.20 H* D Direct Bilirubin 9.70 H Indirect Bilirubin 6.5 H AST 119 H ALT 116 H Alkaline Phosphatase 667 H Ammonia B-Natriuretic Peptide Total Protein 5.7 L Albumin 3.4 Globulin 2.3 Albumin/Globulin Ratio 1.5 Amylase Lipase TSH Urine Color Urine Appearance Urine pH Ur Specific [place] Urine Protein Urine Ketones Urine Blood Urine Nitrate Urine Bilirubin Urine Urobilinogen Ur Leukocyte Esterase Urine WBC (Auto) Urine RBC (Auto) Ur Squamous Epith Cells Urine Bacteria Urine Glucose Urine Ascorbic Acid Digoxin Salicylates Urine Opiates Screen Acetaminophen Ur Barbiturates Screen Ur Phencyclidine Scrn Ur Amphetamines Screen U Benzodiazepines Scrn Urine Cocaine Screen U Cannabinoids Screen Serum Alcohol
[2018-12-25] MEDS: Cholestyramine Resin* 4 GM POWDER PO SCH ×2 (11:54→21:28)
[2018-12-25] MEDS: ARIPiprazole TAB* 5 MG PO SCH (16:40)
[2018-12-25] MEDS: Digoxin TAB* 0.125 MG PO SCH (17:29)
[2018-12-25] MEDS ORDERED: hydrOXYzine HCL TAB* 10 MG PO PRN (18:29)
[2018-12-25] MEDS ORDERED: hydrOXYzine HCL TAB* 25 MG PO PRN (18:30)
--- NOTE | 2018-12-25 18:34 | PN ---
Subjective Date of Service: 12/25/18 Interval History: Pt is feeling ok. He continues to have significant itching diffusely. No abdominal pain. No fevers. Objective Active Medications: Aripiprazole (Abilify Tab*) 10 mg PO DAILY [facility] Last Admin: 12/25/18 16:40 Dose: 10 mg Cholestyramine Resin (Questran*) 4 gm PO BID@1100,2300 [facility] Last Admin: 12/25/18 11:54 Dose: 4 gm Dabigatran (Pradaxa Cap(Nf)) 150 mg PO BID [facility] Last Admin: 12/25/18 09:11 Dose: 150 mg Digoxin (Lanoxin Tab*) 0.125 mg PO DAILY@1700 [facility] Last Admin: 12/25/18 17:29 Dose: 0.125 mg Diltiazem HCl (Cardizem Cd Cap*) 240 mg PO DAILY [facility] Last Admin: 12/25/18 09:12 Dose: 240 mg Metoprolol Tartrate (Lopressor Tab*) 100 mg PO BID [facility] Last Admin: 12/25/18 09:12 Dose: 100 mg Oxybutynin Chloride (Ditropan Xl Tab*) 10 mg PO DAILY [facility] Last Admin: 12/25/18 09:12 Dose: 10 mg Vital Signs - 8 hr 12/25/18 12/25/18 14:34 17:29 Pulse Rate 88 Respiratory 18 Rate Oxygen Devices in Use Now: None Appearance: Middle aged male lying in bed, sleeping, easily awakens to voice, NAD Eyes: - - + icteric sclera Ears/Nose/Mouth/Throat: Mucous Membranes Moist Respiratory: Symmetrical Chest Expansion and Respiratory Effort, Clear to Auscultation Cardiovascular: NL Sounds; No Murmurs; No JVD, RRR, - - 2+ LE edema Abdominal: NL Sounds; No Tenderness; No Distention Extremities: No Clubbing, Cyanosis Skin: No Nodules or Sclerosis, - - scratches noted all over the skin, jaundiced Neurological: Alert and Oriented x 3 Result Diagrams: 12/25/18 06:59 12/25/18 06:59 Additional Lab and Data: Lab Results 12/23/18 12/23/18 12/23/18 Range/Units 11:56 11:56 11:56 WBC 7.1 (3.5-10.8) 10^3/uL RBC 3.88 L (4.18-5.48) 10^6 /uL Hgb 12.3 L (14.0-18.0) g/dL Hct 36 L (42-52) % MCV 93 (80-94) fL MCH 32 H (27-31) pg MCHC 34 (31-36) g/dL RDW 17 H (10-15) % Plt Count 246 (150-450) 10^3/uL MPV 9.1 (7.4-10.4) fL Neut % (Auto) 76.7 % Lymph % (Auto) 9.2 % [place] % (Auto) 10.9 % Eos % (Auto) 2.7 % Baso % (Auto) 0.5 % Absolute Neuts (auto) 5.4 (1.5-7.7) 10^3/ul Absolute Lymphs (auto) 0.7 L (1.0-4.8) 10^3/ul Absolute Monos (auto) 0.8 (0-0.8) 10^3/ul Absolute Eos (auto) 0.2 (0-0.6) 10^3/ul Absolute Basos (auto) 0.0 (0-0.2) 10^3/ul Absolute Nucleated RBC 0.0 10^3/ul Nucleated RBC % 0.1 Sodium 136 (135-145) mmol/L Potassium 4.2 (3.5-5.0) mmol/L Chloride 103 (101-111) mmol/L Carbon Dioxide 27 (22-32) mmol/L Anion Gap 6 (2-11) mmol/L BUN 40 H (6-24) mg/dL Creatinine 1.17 (0.67-1.17) mg/dL Est GFR ( Amer) 77.7 (>60) Est GFR (Non-Af Amer) 64.3 (>60) BUN/Creatinine Ratio 34.2 H (8-20) Glucose 101 H (70-100) mg/dL Calcium 9.3 (8.6-10.3) mg/dL Total Bilirubin 11.10 H (0.2-1.0) mg/dL Direct Bilirubin 6.50 H (0.03-0.18) mg/dL Indirect Bilirubin 4.6 H (0.3-1.0) mg/dL AST 145 H (13-39) U/L ALT 134 H (7-52) U/L Alkaline Phosphatase 664 H (34-104) U/L B-Natriuretic Peptide 110 H (<=100) pg/mL Total Protein 5.8 L (6.4-8.9) g/dL Albumin 3.5 (3.2-5.2) g/dL Globulin 2.3 (2-4) g/dL Albumin/Globulin Ratio 1.5 (1-3) Amylase 27 L (29-103) U/L Lipase 42 (11.0-82.0) U/L TSH 0.63 (0.34-5.60) mcIU/mL Urine Color Urine Appearance Urine pH (5-9) Ur Specific Wallace (1.010-1.030) Urine Protein (Negative) Urine Ketones (Negative) Urine Blood (Negative) Urine Nitrate (Negative) Urine Bilirubin (Negative) Urine Urobilinogen (Negative) Ur Leukocyte Esterase (Negative) Urine WBC (Auto) (Absent) Urine RBC (Auto) (Absent) Ur Squamous Epith Cells (Absent) Urine Bacteria (Absent) Urine Glucose (Negative) Urine Ascorbic Acid (Negative) Salicylates < 2.50 (<30) mg/dL Urine Opiates Screen (None Detect) Acetaminophen < 15 mcg/mL Ur Barbiturates Screen (None Detect) Ur Phencyclidine Scrn (None Detect) Ur Amphetamines Screen (None Detect) U Benzodiazepines Scrn (None Detect) Urine Cocaine Screen (None Detect) U Cannabinoids Screen (None Detect) Serum Alcohol < 10 (<10) mg/dL 12/23/18 12/23/18 Range/Units 12:22 12:22 WBC (3.5-10.8) 10^3/uL RBC (4.18-5.48) 10^6 /uL Hgb (14.0-18.0) g/dL Hct (42-52) % MCV (80-94) fL MCH (27-31) pg MCHC (31-36) g/dL RDW (10-15) % Plt Count (150-450) 10^3/uL MPV (7.4-10.4) fL Neut % (Auto) % Lymph % (Auto) % [place] % (Auto) % Eos % (Auto) % Baso % (Auto) % Absolute Neuts (auto) (1.5-7.7) 10^3/ul Absolute Lymphs (auto) (1.0-4.8) 10^3/ul Absolute Monos (auto) (0-0.8) 10^3/ul Absolute Eos (auto) (0-0.6) 10^3/ul Absolute Basos (auto) (0-0.2) 10^3/ul Absolute Nucleated RBC 10^3/ul Nucleated RBC % Sodium (135-145) mmol/L Potassium (3.5-5.0) mmol/L Chloride (101-111) mmol/L Carbon Dioxide (22-32) mmol/L Anion Gap (2-11) mmol/L BUN (6-24) mg/dL Creatinine (0.67-1.17) mg/dL Est GFR ( Amer) (>60) Est GFR (Non-Af Amer) (>60) BUN/Creatinine Ratio (8-20) Glucose (70-100) mg/dL Calcium (8.6-10.3) mg/dL Total Bilirubin (0.2-1.0) mg/dL Direct Bilirubin (0.03-0.18) mg/dL Indirect Bilirubin (0.3-1.0) mg/dL AST (13-39) U/L ALT (7-52) U/L Alkaline Phosphatase (34-104) U/L B-Natriuretic Peptide (<=100) pg/mL Total Protein (6.4-8.9) g/dL Albumin (3.2-5.2) g/dL Globulin (2-4) g/dL Albumin/Globulin Ratio (1-3) Amylase (29-103) U/L Lipase (11.0-82.0) U/L TSH (0.34-5.60) mcIU/mL Urine Color Nadya Urine Appearance Clear Urine pH 6.0 (5-9) Ur Specific [place] 1.017 (1.010-1.030) Urine Protein Negative (Negative) Urine Ketones Negative (Negative) Urine Blood 2+ A (Negative) Urine Nitrate Negative (Negative) Urine Bilirubin Negative (Negative) Urine Urobilinogen Positive A (Negative) Ur Leukocyte Esterase Negative (Negative) Urine WBC (Auto) Trace(0-5/hpf) (Absent) Urine RBC (Auto) 3+(>10/hpf) A (Absent) Ur Squamous Epith Cells Present A (Absent) Urine Bacteria Absent (Absent) Urine Glucose Negative (Negative) Urine Ascorbic Acid * A (Negative) Salicylates (<30) mg/dL Urine Opiates Screen None detected (None Detect) Acetaminophen mcg/mL Ur Barbiturates Screen None detected (None Detect) Ur Phencyclidine Scrn None detected (None Detect) Ur Amphetamines Screen None detected (None Detect) U Benzodiazepines Scrn None detected (None Detect) Urine Cocaine Screen None detected (None Detect) U Cannabinoids Screen None detected (None Detect) Serum Alcohol (<10) mg/dL Microbiology and Other Data: Microbiology 12/24/18 05:45 Nasal Screen MRSA (PCR) - Final Nasal Mrsa Not Detected Assess/Plan/Problems-Billing Mr Prado is a 58 yo M who has a h/o paranoid schizophrenia not on any medications and afib who presented to the ER with c/o itching from what he thought was bugs in his bed but was found to have hyperbilirubinemia and on imaging found to have a 2.7cm pancreatic head mass. - Patient Problems (1) Pancreatic mass Current Visit: Yes Status: Acute Comment: Pt needs ERCP for stent and possible EUS for biopsy. Likely pancreatic carcinoma. These are non-urgent evaluations that need to be done. Unfortunately Dr. Baeza is away on vacation and not available until next week. If pt remains fever free and without climbing WBC count or abdominal pain the patient can wait. If he develops signs of chloangitis or if his bilirubin continues to climb significantly the patient will need transfer for ERCP and stenting. Follow liver panel and CBC frequently. Continue cholestyramine and start prn hydoxyzine for itching. (2) Lower extremity edema Current Visit: Yes Status: Acute Code(s): R60.0 - LOCALIZED EDEMA SNOMED Code(s): 451295447 Comment: Unclear cause. No evidence of DVT. Albumin ok. Skin is weeping when he scratches. Apply DANITZA hose. (3) Afib Current Visit: Yes Status: Acute Code(s): I48.91 - UNSPECIFIED ATRIAL FIBRILLATION SNOMED Code(s): 61345631 Comment: HR controlled on diltiazem, metoprolol and digoxin. Hold pradaxa starting tonight in anticipation of needing ERCP soon. (4) Paranoid schizophrenia Current Visit: Yes Status: Acute Code(s): F20.0 - PARANOID SCHIZOPHRENIA SNOMED Code(s): 68968913 Comment: Per psychiatry (5) DVT prophylaxis Current Visit: Yes Status: Acute Code(s): Z29.9 - ENCOUNTER FOR PROPHYLACTIC MEASURES, UNSPECIFIED SNOMED Code(s): 139176560 Comment: ambulation (6) Full code status Current Visit: Yes Status: Acute Code(s): Z78.9 - OTHER SPECIFIED HEALTH STATUS SNOMED Code(s): 016384825
[2018-12-25 19:56] LABS: ABS Basophils 0.1 10^3/ul (0-0.2); ABS Eosinophils 0.2 10^3/ul (0-0.6); ABS Lymphocytes 0.6 10^3/ul (1.0-4.8); ABS Monocytes 0.6 10^3/ul (0-0.8); ABS Neutrophils 5.9 10^3/ul (1.5-7.7); Eosinophil % 2.1 %; Hematocrit 35 % (42-52); Hemoglobin 11.7 g/dL (14.0-18.0); Lymphocyte % 7.8 %; Mean Corpuscular HGB Conc 34 g/dL (31-36); Mean Corpuscular Hemoglobin 32 pg (27-31); Mean Corpuscular Volume 94 fL (80-94); Mean Platelet Volume 9.3 fL (7.4-10.4); Platelet Count 223 10^3/uL (150-450); Red Blood Count 3.68 10^6 /uL (4.18-5.48); Red Cell Distribution Width 17 % (10-15); White Blood Count 7.3 10^3/uL (3.5-10.8)
[2018-12-25 20:14] LABS: Albumin 3.2 g/dL (3.2-5.2); Albumin/Globulin Ratio 1.6 (1-3); BUN/Creatinine Ratio 26.5 (8-20); Calcium 8.6 mg/dL (8.6-10.3); EGFR African American 65.4 (>60); Potassium 4.2 mmol/L (3.5-5.0); Total Protein 5.2 g/dL (6.4-8.9)
[2018-12-25 20:18] LABS: Indirect Bilirubin 6.1 mg/dL (0.3-1.0)
[2018-12-25] MEDS ORDERED: Ondansetron ODT TAB* 4 MG PO PRN (21:26)
[2018-12-26] MEDS: Oxybutynin XL TAB* 5 MG PO SCH (10:40)
[2018-12-26] MEDS: ARIPiprazole TAB* 5 MG PO SCH (10:40)
[2018-12-26] MEDS: Cholestyramine Resin* 4 GM POWDER PO SCH (10:40)
[2018-12-26] MEDS: Diltiazem CD CAP* 240 MG PO SCH (10:40)
[2018-12-26] MEDS: Metoprolol Tartrate TAB* 100 MG TAB PO SCH ×2 (10:43→21:06)
[2018-12-26 11:40] LABS: ABS Eosinophils 0.1 10^3/ul (0-0.6); ABS Lymphocytes 0.8 10^3/ul (1.0-4.8); ABS Monocytes 0.7 10^3/ul (0-0.8); ABS Neutrophils 5.3 10^3/ul (1.5-7.7); Eosinophil % 1.9 %; Hematocrit 36 % (42-52); Hemoglobin 12.3 g/dL (14.0-18.0); Lymphocyte % 10.9 %; Mean Corpuscular HGB Conc 34 g/dL (31-36); Mean Corpuscular Hemoglobin 32 pg (27-31); Mean Corpuscular Volume 94 fL (80-94); Mean Platelet Volume 9.1 fL (7.4-10.4); Platelet Count 254 10^3/uL (150-450); Red Blood Count 3.84 10^6 /uL (4.18-5.48); Red Cell Distribution Width 18 % (10-15); White Blood Count 6.9 10^3/uL (3.5-10.8)
[2018-12-26 12:03] LABS: Albumin 3.4 g/dL (3.2-5.2); Albumin/Globulin Ratio 1.5 (1-3); BUN/Creatinine Ratio 27.9 (8-20); Calcium 9.1 mg/dL (8.6-10.3); EGFR African American 65.4 (>60); Globulin 2.3 g/dL (2-4); HDL Cholesterol 3.1 mg/dL; Total Protein 5.7 g/dL (6.4-8.9)
[2018-12-26 12:16] LABS: INR 0.92 (0.82-1.09)
[2018-12-26 12:45] LABS: Indirect Bilirubin 4.3 mg/dL (0.3-1.0)
--- NOTE | 2018-12-26 14:17 | DS ---
Subjective - Subjective Service Types: [id number] [facility] Day Mgmt complex over 30 min Discharge Date: 12/27/18 Subjective: CC: " Sick " Patient looks forward to getting medical treatment.He has been vomiting and has had diarrhea most of the day. The patient preferred to not to inform his sister or other family members that he will is being transferred to [facility]. Justification for admission: Immediate Safety. CC " I am here for medical reasons" The patient was brought to [facility] by staff at [facility] when he told staff that he saw bugs crawling all over him and accusing staff of injecting corn oil into his legs. Patient expressed having a argument with a staff member at [place]. He stated that he would ask her questions and she did not like it. He denied taking psychiatric medications recently. At the current time the patient endorsed feeling itchy and denied seeing and or feeling bugs crawling on him. Patient reported " I think I have bullets inside of me." Patient stated " I know what schizophrenia is, its when someone has anal sex and puts male semen in the rectum" He denied access to firearms or stockpiles of medications. He reported having poor sleep. He reported not changes in appetite. He is complaining of loose stool. He denied fever chest pain shortness of breath. The patient denied suicidal and or homicidal ideation intent or plan. The patient denied auditory and/ or visual hallucinations. Patient was unable to participate in psychiatric review of systems PAST PSYCHIATRIC HISTORY: Prior Diagnosis : Schizophrenia History of past Psychiatric Hospitalizations: [facility] History of past suicide/homicide attempts : Denied past suicide attempts. Denied past homicidal incidents. Outpatient follow-up: None Medications: Past trials of medications include zyprexa, haldol, depakote, abilify Guardianship: None. FAMILY HISTORY: - Suicide: Denied family history of suicide. - Mental illness: Denied a history of mental health in immediate family members. - Substance abuse: Brother has alcoholism SUBSTANCE ABUSE HISTORY: Denied using alcohol, tobacco, heroin cocaine or other illicit substances. Denied abusing pills for recreational use. Denied past Substance abuse treatment. SOCIAL HISTORY: Born in and raised in [facility]. He reported being and having 4 daughters. He is currently living at [facility]. 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 - Legal history: Denied - service history: Denied PAST MEDICAL HISTORY: Atrial fibrillation, hypertension, stage III CK D, type 2 diabetes, COPD, WILL, HCl, GERD, overactive bladder, constipation, paranoid schizophrenia. - Allergies: Fluphenazine, heparin, ziprasidone Physical Exam: Please see ED note Mental Status Exam on Admission APPEARANCE : 58 year old who appears stated age. Patient appears to poor hygiene and grooming. BEHAVIOR: Cooperative , calm EYE CONTACT: Fair PSYCHOMOTOR ACTIVITY: No psychomotor agitation or retardation. MOVEMENTS: No abnormal movements observed. SPEECH : Normal rate, rhythm, volume and tone. MOOD : "Fine " AFFECT : Type is dysphoric. Range is blunted with shallow depth Mood Incongruent THOUGHT PROCESS: Formulated and organized in a illogical, manner. Tangential with loose associations , THOUGHT CONTENT: multiple delusions PERCEPTION: No current auditory or visual hallucinations. Doesnt appear to be responding to internal cues. SUICIDALITY Denied suicidal ideation, intent or plan. HOMICIDALITY Denied homicidal ideation, intent or plan. Insight/judgment: Poor insight and judgment ORIENTATION: Oriented to self, location, and time. Diagnosis on Admission: Schizophrenia Diagnosis on Discharge: Schizophrenia Condition at the time of discharge: At the time of discharge patient required medical stabilization and was transferred to [facility] Objective - General Observations Appearance: Disheveled Appears Stated Age: No - older Stature: Thin Posture: Slumped Eye Contact: Avoidant Behavior/Activity: Slowed - Interaction Observations Attitude Towards Examiner: Cooperative Stated Mood: Anxious Affect: Blunted Speech Pattern/Tone: Clear Thought Process: Loose Associations, Tangential Thought Content: WNL Hallucination Type: None Delusion Type: None - Cognitive Function Orientation: A&O x 4 Level of Consciousness: Awake - Medication Compliance Cooperative with Inpatient Medication Regimen: Yes - Group Participation Participates in Group Activities: No Treatment Course & Assessment Clinical Course & Impression: Hospital course part A: 58 year old Caucassian male with a history of schizophrenia presented to the [facility] with multiple medical issues and arrangements were made to transfer the patient. Hospital course part B: Labs ordered included CBC, CMP, UDS, TSH, HBA1c, TSH, EKG Toxicology screen, Urine analysis, and lipid profile. Labs were reviewed and did not require the need for further evaluation. Vital signs were monitored during the course of admission. The patient was admitted to the adult behavioral unit and placed on 15 minute check for safety. The patients medical conditions prevented him in utilizing the resources of the [facility]. The risks, benefits, and alternative treatment options were discussed as well as of the risks of refusing treatment. Treatment associated risks discussed. After this discussion made an acknowledgement of this understanding. The patient denied suicidal and or homicidal ideation intent or plan. Safety precautions were put in place which included confirming no access to firearms or stockpile of medications. Patient was safe on all checks AIMS was performed and insignificant for involuntary movement disorders. The patient was advised of the 24 hour / 7 days a week availability of the emergency room and to call 911 in the event of an emergency such as being suicidal and/ or homicidal. The patient was informed of the contact information for [facility] Behavioral Services Unit, Suicide Prevention and Crisis Services, National Suicide Prevention Lifeline, [facility], Alcoholics Anonymous, and [facility]. Medications included restarting his home medications. His medications were verified from [facility] and at that time he was not on any psychotropic medications. Abilify was started at 10mg daily and was discontinued due to potential to confound medical issues. Patients mood was influenced by acute medical issues including vomiting, diarrhea, nausea. Consults included to hospitalist team who determined that the patient required a higher level of care due to acute medical issues. A pancreatic mass was located by the medical team and the patient was informed. The patient seemed indifferent to this information. Patient was not assaultive or a behavioral problem during the course of admission. The patient was mostly in the bathroom and bed. He was safe on all safety checks Patient will be discharged to [facility] by ambulance Patient wished not to inform family members or involve them in his care. Follow up appointment with PCP and [facility] Patient doesnt require 1:1 supervision at this time. Vital Signs Temp Pulse Resp BP Pulse Ox 97.4 F 83 18 101/70 99 12/26/18 10:25 12/26/18 10:25 12/26/18 10:30 12/26/18 10:25 12/26/18 10:25 12/23/18 12/24/18 12/24/18 17:35 07:43 07:43 WBC 7.3 RBC 4.04 L Hgb 13.2 L Hct 38 L MCV 93 MCH 33 H MCHC 35 RDW 17 H Plt Count 238 MPV 9.0 Neut % (Auto) 71.9 Lymph % (Auto) 10.9 [place] % (Auto) 11.8 Eos % (Auto) 4.6 Baso % (Auto) 0.8 Absolute Neuts (auto) 5.2 Absolute Lymphs (auto) 0.8 L Absolute Monos (auto) 0.9 H Absolute Eos (auto) 0.3 Absolute Basos (auto) 0.1 Absolute Nucleated RBC 0.0 Nucleated RBC % 0.0 INR (Anticoag Therapy) 0.93 Sodium 135 Potassium 4.4 Chloride 104 Carbon Dioxide 24 Anion Gap 7 BUN 35 H Creatinine 1.29 H Est GFR ( Amer) 69.5 Est GFR (Non-Af Amer) 57.4 BUN/Creatinine Ratio 27.1 H Glucose 89 Hemoglobin A1c Calcium 8.9 Magnesium 2.0 Total Bilirubin 13.20 H* D Direct Bilirubin 8.00 H Indirect Bilirubin 5.2 H AST 132 H ALT 126 H Alkaline Phosphatase 709 H Ammonia Total Protein 5.9 L Albumin 3.5 Globulin 2.4 Albumin/Globulin Ratio 1.5 Triglycerides Cholesterol LDL Cholesterol HDL Cholesterol Digoxin 0.9 12/25/18 12/25/18 12/25/18 06:59 06:59 06:59 WBC 6.9 RBC 3.84 L Hgb 12.5 L Hct 36 L MCV 93 MCH 32 H MCHC 35 RDW 18 H Plt Count 259 MPV 9.5 Neut % (Auto) 71.7 Lymph % (Auto) 10.7 [place] % (Auto) 12.5 Eos % (Auto) 4.6 Baso % (Auto) 0.5 Absolute Neuts (auto) 4.9 Absolute Lymphs (auto) 0.7 L Absolute Monos (auto) 0.9 H Absolute Eos (auto) 0.3 Absolute Basos (auto) 0.0 Absolute Nucleated RBC 0.0 Nucleated RBC % 0.1 INR (Anticoag Therapy) Sodium 134 L Potassium 4.1 Chloride 102 Carbon Dioxide 25 Anion Gap 7 BUN 35 H Creatinine 1.21 H Est GFR ( Amer) 74.8 Est GFR (Non-Af Amer) 61.8 BUN/Creatinine Ratio 28.9 H Glucose 85 Hemoglobin A1c 4.9 Calcium 8.9 Magnesium Total Bilirubin 16.20 H* D Direct Bilirubin 9.70 H Indirect Bilirubin 6.5 H AST 119 H ALT 116 H Alkaline Phosphatase 667 H Ammonia Total Protein 5.7 L Albumin 3.4 Globulin 2.3 Albumin/Globulin Ratio 1.5 Triglycerides Cholesterol LDL Cholesterol HDL Cholesterol Digoxin 12/25/18 12/25/18 12/25/18 19:46 19:46 19:46 WBC 7.3 RBC 3.68 L Hgb 11.7 L Hct 35 L MCV 94 MCH 32 H MCHC 34 RDW 17 H Plt Count 223 MPV 9.3 Neut % (Auto) 81.1 Lymph % (Auto) 7.8 [place] % (Auto) 8.1 Eos % (Auto) 2.1 Baso % (Auto) 0.9 Absolute Neuts (auto) 5.9 Absolute Lymphs (auto) 0.6 L Absolute Monos (auto) 0.6 Absolute Eos (auto) 0.2 Absolute Basos (auto) 0.1 Absolute Nucleated RBC 0.0 Nucleated RBC % 0.0 INR (Anticoag Therapy) Sodium 136 Potassium 4.2 Chloride 104 Carbon Dioxide 25 Anion Gap 7 BUN 36 H Creatinine 1.36 H Est GFR ( Amer) 65.4 Est GFR (Non-Af Amer) 54.0 BUN/Creatinine Ratio 26.5 H Glucose 127 H Hemoglobin A1c Calcium 8.6 Magnesium Total Bilirubin 15.00 H* Direct Bilirubin 8.90 H Indirect Bilirubin 6.1 H AST 109 H ALT 104 H Alkaline Phosphatase 616 H Ammonia 41 Total Protein 5.2 L Albumin 3.2 Globulin 2.0 Albumin/Globulin Ratio 1.6 Triglycerides Cholesterol LDL Cholesterol HDL Cholesterol Digoxin 12/26/18 12/26/18 12/26/18 11:18 11:18 11:48 WBC 6.9 RBC 3.84 L Hgb 12.3 L Hct 36 L MCV 94 MCH 32 H MCHC 34 RDW 18 H Plt Count 254 MPV 9.1 Neut % (Auto) 76.6 Lymph % (Auto) 10.9 [place] % (Auto) 10.1 Eos % (Auto) 1.9 Baso % (Auto) 0.5 Absolute Neuts (auto) 5.3 Absolute Lymphs (auto) 0.8 L Absolute Monos (auto) 0.7 Absolute Eos (auto) 0.1 Absolute Basos (auto) 0.0 Absolute Nucleated RBC 0.0 Nucleated RBC % 0.0 INR (Anticoag Therapy) 0.92 Sodium 136 Potassium 4.0 Chloride 105 Carbon Dioxide 24 Anion Gap 7 BUN 38 H Creatinine 1.36 H Est GFR ( Amer) 65.4 Est GFR (Non-Af Amer) 54.0 BUN/Creatinine Ratio 27.9 H Glucose 118 H Hemoglobin A1c Calcium 9.1 Magnesium Total Bilirubin 17.00 H* D Direct Bilirubin 12.70 H Indirect Bilirubin 4.3 H AST 114 H ALT 115 H Alkaline Phosphatase 611 H Ammonia Total Protein 5.7 L Albumin 3.4 Globulin 2.3 Albumin/Globulin Ratio 1.5 Triglycerides 143 Cholesterol 79 LDL Cholesterol 47 HDL Cholesterol 3.1 Digoxin Merits Inpatient Hospitalization: No Clear for Discharge: Other - requires medical intervention at [facility] Discharge Planning - Discharge Planning Discharge Plan: Inpatient Hospitalization Outpatient Program: [facility] Recommendations for Continuing Care: Primary Care Followup Medications: Current Medications Cholestyramine Resin (Questran*) 4 gm PO BID@1100,2300 [facility] Last Admin: 12/26/18 10:40 Dose: 4 gm Digoxin (Lanoxin Tab*) 0.125 mg PO DAILY@1700 [facility] Last Admin: 12/25/18 17:29 Dose: 0.125 mg Diltiazem HCl (Cardizem Cd Cap*) 240 mg PO DAILY [facility] Last Admin: 12/26/18 10:40 Dose: 240 mg Hydroxyzine HCl (Atarax Tab*) 25 mg PO Q6H PRN PRN Reason: itching Metoprolol Tartrate (Lopressor Tab*) 100 mg PO BID [facility] Last Admin: 12/26/18 10:43 Dose: Not Given Ondansetron HCl (Zofran Odt Tab*) 4 mg PO Q6H PRN PRN Reason: NAUSEA/VOMITING Oxybutynin Chloride (Ditropan Xl Tab*) 10 mg PO DAILY [facility] Last Admin: 12/26/18 10:40 Dose: 10 mg Discharge Planning: Prescriptions provided for discharge [] Yes [x] No Follow up care details as per social work arrangements. Patient response to discharge plan: [x] eager for discharge [] agreeable with discharge plan [] ambivalent about discharge [] disagrees with discharge today
[2018-12-26] MEDS: Digoxin TAB* 0.125 MG PO SCH (17:00)
--- NOTE | 2018-12-26 19:24 | PN ---
Subjective Date of Service: 12/26/18 Interval History: Patient seen today at the request of Dr. Bettina Torres from psychiatry stating the patient has been having increase diarrhea and vomiting. Also Blood per rectum. I did go see and evaluate the patient on psych floor. He is ambulating , and in no apparent distress. He reports increase diarrhea but did not have any further vomit. His stool brown yellow and report blood only on the toilet paper but no jeannie blood in the toilet. He denies any chest pain, he does have mild shortness of breath. His leg are edematous since admissions. Past Medical History: Unchanged from Admission Objective Active Medications: Cholestyramine Resin (Questran*) 4 gm PO BID@1100,2300 [facility] Last Admin: 12/26/18 10:40 Dose: 4 gm Digoxin (Lanoxin Tab*) 0.125 mg PO DAILY@1700 [facility] Last Admin: 12/26/18 17:00 Dose: 0.125 mg Diltiazem HCl (Cardizem Cd Cap*) 240 mg PO DAILY [facility] Last Admin: 12/26/18 10:40 Dose: 240 mg Hydroxyzine HCl (Atarax Tab*) 25 mg PO Q6H PRN PRN Reason: itching Metoprolol Tartrate (Lopressor Tab*) 100 mg PO BID [facility] Last Admin: 12/26/18 10:43 Dose: Not Given Ondansetron HCl (Zofran Odt Tab*) 4 mg PO Q6H PRN PRN Reason: NAUSEA/VOMITING Oxybutynin Chloride (Ditropan Xl Tab*) 10 mg PO DAILY [facility] Last Admin: 12/26/18 10:40 Dose: 10 mg Vital Signs - 8 hr 12/26/18 17:00 Pulse Rate 86 Pulse oximetry 100% on room and not tachycardia Oxygen Devices in Use Now: None Appearance: awake, alert no distress. jaundice Eyes: - - icteric sclera Ears/Nose/Mouth/Throat: Clear Oropharnyx, Mucous Membranes Moist Neck: Trachea Midline Respiratory: Clear to Auscultation, - - no rales, no wheezing Cardiovascular: NL Sounds; No Murmurs; No JVD, - - + 2 edema bilateral Abdominal: NL Sounds; No Tenderness; No Distention, - - no RUQ tenderness, negative mir's Extremities: - - + edema Neurological: Alert and Oriented x 3 Result Diagrams: 12/26/18 11:18 12/26/18 11:18 Additional Lab and Data: Lab Results 12/23/18 12/23/18 12/23/18 Range/Units 11:56 11:56 11:56 WBC 7.1 (3.5-10.8) 10^3/uL RBC 3.88 L (4.18-5.48) 10^6 /uL Hgb 12.3 L (14.0-18.0) g/dL Hct 36 L (42-52) % MCV 93 (80-94) fL MCH 32 H (27-31) pg MCHC 34 (31-36) g/dL RDW 17 H (10-15) % Plt Count 246 (150-450) 10^3/uL MPV 9.1 (7.4-10.4) fL Neut % (Auto) 76.7 % Lymph % (Auto) 9.2 % [place] % (Auto) 10.9 % Eos % (Auto) 2.7 % Baso % (Auto) 0.5 % Absolute Neuts (auto) 5.4 (1.5-7.7) 10^3/ul Absolute Lymphs (auto) 0.7 L (1.0-4.8) 10^3/ul Absolute Monos (auto) 0.8 (0-0.8) 10^3/ul Absolute Eos (auto) 0.2 (0-0.6) 10^3/ul Absolute Basos (auto) 0.0 (0-0.2) 10^3/ul Absolute Nucleated RBC 0.0 10^3/ul Nucleated RBC % 0.1 Sodium 136 (135-145) mmol/L Potassium 4.2 (3.5-5.0) mmol/L Chloride 103 (101-111) mmol/L Carbon Dioxide 27 (22-32) mmol/L Anion Gap 6 (2-11) mmol/L BUN 40 H (6-24) mg/dL Creatinine 1.17 (0.67-1.17) mg/dL Est GFR ( Amer) 77.7 (>60) Est GFR (Non-Af Amer) 64.3 (>60) BUN/Creatinine Ratio 34.2 H (8-20) Glucose 101 H (70-100) mg/dL Calcium 9.3 (8.6-10.3) mg/dL Total Bilirubin 11.10 H (0.2-1.0) mg/dL Direct Bilirubin 6.50 H (0.03-0.18) mg/dL Indirect Bilirubin 4.6 H (0.3-1.0) mg/dL AST 145 H (13-39) U/L ALT 134 H (7-52) U/L Alkaline Phosphatase 664 H (34-104) U/L B-Natriuretic Peptide 110 H (<=100) pg/mL Total Protein 5.8 L (6.4-8.9) g/dL Albumin 3.5 (3.2-5.2) g/dL Globulin 2.3 (2-4) g/dL Albumin/Globulin Ratio 1.5 (1-3) Amylase 27 L (29-103) U/L Lipase 42 (11.0-82.0) U/L TSH 0.63 (0.34-5.60) mcIU/mL Urine Color Urine Appearance Urine pH (5-9) Ur Specific [place] (1.010-1.030) Urine Protein (Negative) Urine Ketones (Negative) Urine Blood (Negative) Urine Nitrate (Negative) Urine Bilirubin (Negative) Urine Urobilinogen (Negative) Ur Leukocyte Esterase (Negative) Urine WBC (Auto) (Absent) Urine RBC (Auto) (Absent) Ur Squamous Epith Cells (Absent) Urine Bacteria (Absent) Urine Glucose (Negative) Urine Ascorbic Acid (Negative) Salicylates < 2.50 (<30) mg/dL Urine Opiates Screen (None Detect) Acetaminophen < 15 mcg/mL Ur Barbiturates Screen (None Detect) Ur Phencyclidine Scrn (None Detect) Ur Amphetamines Screen (None Detect) U Benzodiazepines Scrn (None Detect) Urine Cocaine Screen (None Detect) U Cannabinoids Screen (None Detect) Serum Alcohol < 10 (<10) mg/dL 12/23/18 12/23/18 Range/Units 12:22 12:22 WBC (3.5-10.8) 10^3/uL RBC (4.18-5.48) 10^6 /uL Hgb (14.0-18.0) g/dL Hct (42-52) % MCV (80-94) fL MCH (27-31) pg MCHC (31-36) g/dL RDW (10-15) % Plt Count (150-450) 10^3/uL MPV (7.4-10.4) fL Neut % (Auto) % Lymph % (Auto) % [place] % (Auto) % Eos % (Auto) % Baso % (Auto) % Absolute Neuts (auto) (1.5-7.7) 10^3/ul Absolute Lymphs (auto) (1.0-4.8) 10^3/ul Absolute Monos (auto) (0-0.8) 10^3/ul Absolute Eos (auto) (0-0.6) 10^3/ul Absolute Basos (auto) (0-0.2) 10^3/ul Absolute Nucleated RBC 10^3/ul Nucleated RBC % Sodium (135-145) mmol/L Potassium (3.5-5.0) mmol/L Chloride (101-111) mmol/L Carbon Dioxide (22-32) mmol/L Anion Gap (2-11) mmol/L BUN (6-24) mg/dL Creatinine (0.67-1.17) mg/dL Est GFR ( Amer) (>60) Est GFR (Non-Af Amer) (>60) BUN/Creatinine Ratio (8-20) Glucose (70-100) mg/dL Calcium (8.6-10.3) mg/dL Total Bilirubin (0.2-1.0) mg/dL Direct Bilirubin (0.03-0.18) mg/dL Indirect Bilirubin (0.3-1.0) mg/dL AST (13-39) U/L ALT (7-52) U/L Alkaline Phosphatase (34-104) U/L B-Natriuretic Peptide (<=100) pg/mL Total Protein (6.4-8.9) g/dL Albumin (3.2-5.2) g/dL Globulin (2-4) g/dL Albumin/Globulin Ratio (1-3) Amylase (29-103) U/L Lipase (11.0-82.0) U/L TSH (0.34-5.60) mcIU/mL Urine Color [place] Urine Appearance Clear Urine pH 6.0 (5-9) Ur Specific [place] 1.017 (1.010-1.030) Urine Protein Negative (Negative) Urine Ketones Negative (Negative) Urine Blood 2+ A (Negative) Urine Nitrate Negative (Negative) Urine Bilirubin Negative (Negative) Urine Urobilinogen Positive A (Negative) Ur Leukocyte Esterase Negative (Negative) Urine WBC (Auto) Trace(0-5/hpf) (Absent) Urine RBC (Auto) 3+(>10/hpf) A (Absent) Ur Squamous Epith Cells Present A (Absent) Urine Bacteria Absent (Absent) Urine Glucose Negative (Negative) Urine Ascorbic Acid * A (Negative) Salicylates (<30) mg/dL Urine Opiates Screen None detected (None Detect) Acetaminophen mcg/mL Ur Barbiturates Screen None detected (None Detect) Ur Phencyclidine Scrn None detected (None Detect) Ur Amphetamines Screen None detected (None Detect) U Benzodiazepines Scrn None detected (None Detect) Urine Cocaine Screen None detected (None Detect) U Cannabinoids Screen None detected (None Detect) Serum Alcohol (<10) mg/dL Microbiology and Other Data: Microbiology 12/24/18 05:45 Nasal Screen MRSA (PCR) - Final Nasal Mrsa Not Detected Assess/Plan/Problems-Billing Mr Prado is a 58 yo M who has a h/o paranoid schizophrenia not on any medications and afib who presented to the ER with c/o itching from what he thought was bugs in his bed but was found to have hyperbilirubinemia and on imaging found to have a 2.7cm pancreatic head mass. - Patient Problems (1) Afib Current Visit: Yes Status: Acute Code(s): I48.91 - UNSPECIFIED ATRIAL FIBRILLATION SNOMED Code(s): 56458632 Comment: - HR controlled on diltiazem CD 240 mg daily, metoprolol 100 mg b po bid, and digoxin 125 mcg daily - Keep pradaxa on hold start as of 12/25/18 in anticipation of needing ERCP soon. Will start heparin SQ in am for DVT Prohylaxis starting 12/27/18 if he was to remain in our facility (2) Lower extremity edema Current Visit: Yes Status: Acute Code(s): R60.0 - LOCALIZED EDEMA SNOMED Code(s): 625855367 Comment: - Unclear cause. - US 12/23/18 negative for DVT. His Albumin ok. and UA negative for protein - Will need to keep his leg elevated. Apply DANITZA hose. - Will check Echo to assess for LV functions for am if he was to remain in our facility. At this time we are waiting for bed availability at 3 different facility ([facility], [facility] in [place], and [facility] in [place]) (3) Pancreatic mass Current Visit: Yes Status: Acute Comment: - Pt needs ERCP for stent and possible EUS for biopsy. Likely pancreatic carcinoma. although it is not needed on emergen basis but it is urgent to proceed with evaluations given his persistent elevations of his Bilirubin now up to 18 - Unfortunately Dr. Baeza is away on vacation and not available until next week. he is still fever free and without climbing WBC count or abdominal pain bu this can change at any time hence the urgency to transfer him to a [facility] center where this service is available. - Continue cholestyramine and prn hydoxyzine for itching. - I placed transfer request to 3 different facilities and none of them has available bed (#1 [facility] I spoke with hospitalist Dr. Luciano and has accepted the patient but we are waiting for bed #2 [facility] in [place] I spoke to GI Dr. Vail who accepted the patient and hospitalist Dr. Noble who accepted the patient, however there was no available bed #3 [facility] in [place] I spoke to aHrlan LOPEZ attending who accepted the patient, however hospital decline to speak Doc to Doc as they do not have bed available and will call for Doc to doc once bed available) At this time will try in am for an update on bed availablity unless bed will open up overnight. Case signed out to the recording engineer home health occupational therapist. (4) Paranoid schizophrenia Current Visit: Yes Status: Acute Code(s): F20.0 - PARANOID SCHIZOPHRENIA SNOMED Code(s): 63353987 Comment: - Per psychiatry - no need for psych meds. He does not need 1:1 as he does not have suicidal or behavioral issue. Please refer to the transfer summary by psychiatry. He does required psych meds (5) DVT prophylaxis Current Visit: Yes Status: Acute Code(s): Z29.9 - ENCOUNTER FOR PROPHYLACTIC MEASURES, UNSPECIFIED SNOMED Code(s): 755289952 Comment: - Was on pradaxa will start heparin SQ in am
[2018-12-27] MEDS: Cholestyramine Resin* 4 GM POWDER PO SCH ×3 (00:59→23:24)
[2018-12-27 09:31] LABS: ABS Basophils 0.1 10^3/ul (0-0.2); ABS Eosinophils 0.3 10^3/ul (0-0.6); ABS Lymphocytes 0.8 10^3/ul (1.0-4.8); ABS Monocytes 0.7 10^3/ul (0-0.8); ABS Neutrophils 5.8 10^3/ul (1.5-7.7); Eosinophil % 4.2 %; Hematocrit 37 % (42-52); Hemoglobin 12.7 g/dL (14.0-18.0); Lymphocyte % 10.5 %; Mean Corpuscular HGB Conc 34 g/dL (31-36); Mean Corpuscular Hemoglobin 32 pg (27-31); Mean Corpuscular Volume 93 fL (80-94); Mean Platelet Volume 9.8 fL (7.4-10.4); Platelet Count 266 10^3/uL (150-450); Red Blood Count 3.94 10^6 /uL (4.18-5.48); Red Cell Distribution Width 18 % (10-15); White Blood Count 7.7 10^3/uL (3.5-10.8)
[2018-12-27 09:37] LABS: Albumin 3.4 g/dL (3.2-5.2); Albumin/Globulin Ratio 1.5 (1-3); BUN/Creatinine Ratio 27.6 (8-20); Calcium 9.3 mg/dL (8.6-10.3); EGFR African American 88.1 (>60); EGFR Non-African American 72.8 (>60); Globulin 2.3 g/dL (2-4); Potassium 3.7 mmol/L (3.5-5.0); Total Protein 5.7 g/dL (6.4-8.9)
[2018-12-27 10:35] LABS: Indirect Bilirubin 4.2 mg/dL (0.3-1.0)
--- NOTE | 2018-12-27 11:15 | PN ---
Subjective - Subjective Date of Service: 12/26/18 Service Type: [id number] Hosp care 35 min high complexity Subjective: Nursing Report: Patient mostly in his room. CC: "I am always in the bathroom Patient was seen and evaluated. The patient reported feeling sick and always needing to go to the bathroom. He wants to get better and looks forward to going to another hospital for medical treatment. He reported having loose stool and feeling ill. Objective - General Observations Appearance: Unkempt Appears Stated Age: No - older Stature: Thin Posture: Slumped Eye Contact: Avoidant Behavior/Activity: Slowed - Interaction Observations Attitude Towards Examiner: Cooperative Stated Mood: Dysphoric Affect: Blunted Speech Pattern/Tone: Clear Thought Process: Coherent Perception: WNL Thought Content: WNL Hallucination Type: None Delusion Type: Somatic - Cognitive Function Orientation: A&O x 4 Level of Consciousness: Awake - Medication Compliance Cooperative with Inpatient Medication Regimen: Yes - Group Participation Participates in Group Activities: No Assessment - Assessment Merits Inpatient Hospitalization: For Immediate Safety Clinical Impression: Vital Signs Temp Pulse Resp BP Pulse Ox 97.4 F 83 18 101/70 99 12/26/18 10:25 12/26/18 10:25 12/26/18 10:30 12/26/18 10:25 12/26/18 10:25 12/23/18 12/24/18 12/24/18 17:35 07:43 07:43 WBC 7.3 RBC 4.04 L Hgb 13.2 L Hct 38 L MCV 93 MCH 33 H MCHC 35 RDW 17 H Plt Count 238 MPV 9.0 Neut % (Auto) 71.9 Lymph % (Auto) 10.9 Placer % (Auto) 11.8 Eos % (Auto) 4.6 Baso % (Auto) 0.8 Absolute Neuts (auto) 5.2 Absolute Lymphs (auto) 0.8 L Absolute Monos (auto) 0.9 H Absolute Eos (auto) 0.3 Absolute Basos (auto) 0.1 Absolute Nucleated RBC 0.0 Nucleated RBC % 0.0 INR (Anticoag Therapy) 0.93 Sodium 135 Potassium 4.4 Chloride 104 Carbon Dioxide 24 Anion Gap 7 BUN 35 H Creatinine 1.29 H Est GFR ( Amer) 69.5 Est GFR (Non-Af Amer) 57.4 BUN/Creatinine Ratio 27.1 H Glucose 89 Hemoglobin A1c Calcium 8.9 Magnesium 2.0 Total Bilirubin 13.20 H* D Direct Bilirubin 8.00 H Indirect Bilirubin 5.2 H AST 132 H ALT 126 H Alkaline Phosphatase 709 H Ammonia Total Protein 5.9 L Albumin 3.5 Globulin 2.4 Albumin/Globulin Ratio 1.5 Triglycerides Cholesterol LDL Cholesterol HDL Cholesterol Digoxin 0.9 12/25/18 12/25/18 12/25/18 06:59 06:59 06:59 WBC 6.9 RBC 3.84 L Hgb 12.5 L Hct 36 L MCV 93 MCH 32 H MCHC 35 RDW 18 H Plt Count 259 MPV 9.5 Neut % (Auto) 71.7 Lymph % (Auto) 10.7 Placer % (Auto) 12.5 Eos % (Auto) 4.6 Baso % (Auto) 0.5 Absolute Neuts (auto) 4.9 Absolute Lymphs (auto) 0.7 L Absolute Monos (auto) 0.9 H Absolute Eos (auto) 0.3 Absolute Basos (auto) 0.0 Absolute Nucleated RBC 0.0 Nucleated RBC % 0.1 INR (Anticoag Therapy) Sodium 134 L Potassium 4.1 Chloride 102 Carbon Dioxide 25 Anion Gap 7 BUN 35 H Creatinine 1.21 H Est GFR ( Amer) 74.8 Est GFR (Non-Af Amer) 61.8 BUN/Creatinine Ratio 28.9 H Glucose 85 Hemoglobin A1c 4.9 Calcium 8.9 Magnesium Total Bilirubin 16.20 H* D Direct Bilirubin 9.70 H Indirect Bilirubin 6.5 H AST 119 H ALT 116 H Alkaline Phosphatase 667 H Ammonia Total Protein 5.7 L Albumin 3.4 Globulin 2.3 Albumin/Globulin Ratio 1.5 Triglycerides Cholesterol LDL Cholesterol HDL Cholesterol Digoxin 12/25/18 12/25/18 12/25/18 19:46 19:46 19:46 WBC 7.3 RBC 3.68 L Hgb 11.7 L Hct 35 L MCV 94 MCH 32 H MCHC 34 RDW 17 H Plt Count 223 MPV 9.3 Neut % (Auto) 81.1 Lymph % (Auto) 7.8 Placer % (Auto) 8.1 Eos % (Auto) 2.1 Baso % (Auto) 0.9 Absolute Neuts (auto) 5.9 Absolute Lymphs (auto) 0.6 L Absolute Monos (auto) 0.6 Absolute Eos (auto) 0.2 Absolute Basos (auto) 0.1 Absolute Nucleated RBC 0.0 Nucleated RBC % 0.0 INR (Anticoag Therapy) Sodium 136 Potassium 4.2 Chloride 104 Carbon Dioxide 25 Anion Gap 7 BUN 36 H Creatinine 1.36 H Est GFR ( Amer) 65.4 Est GFR (Non-Af Amer) 54.0 BUN/Creatinine Ratio 26.5 H Glucose 127 H Hemoglobin A1c Calcium 8.6 Magnesium Total Bilirubin 15.00 H* Direct Bilirubin 8.90 H Indirect Bilirubin 6.1 H AST 109 H ALT 104 H Alkaline Phosphatase 616 H Ammonia 41 Total Protein 5.2 L Albumin 3.2 Globulin 2.0 Albumin/Globulin Ratio 1.6 Triglycerides Cholesterol LDL Cholesterol HDL Cholesterol Digoxin 12/26/18 12/26/18 12/26/18 11:18 11:18 11:48 WBC 6.9 RBC 3.84 L Hgb 12.3 L Hct 36 L MCV 94 MCH 32 H MCHC 34 RDW 18 H Plt Count 254 MPV 9.1 Neut % (Auto) 76.6 Lymph % (Auto) 10.9 Placer % (Auto) 10.1 Eos % (Auto) 1.9 Baso % (Auto) 0.5 Absolute Neuts (auto) 5.3 Absolute Lymphs (auto) 0.8 L Absolute Monos (auto) 0.7 Absolute Eos (auto) 0.1 Absolute Basos (auto) 0.0 Absolute Nucleated RBC 0.0 Nucleated RBC % 0.0 INR (Anticoag Therapy) 0.92 Sodium 136 Potassium 4.0 Chloride 105 Carbon Dioxide 24 Anion Gap 7 BUN 38 H Creatinine 1.36 H Est GFR ( Amer) 65.4 Est GFR (Non-Af Amer) 54.0 BUN/Creatinine Ratio 27.9 H Glucose 118 H Hemoglobin A1c Calcium 9.1 Magnesium Total Bilirubin 17.00 H* D Direct Bilirubin 12.70 H Indirect Bilirubin 4.3 H AST 114 H ALT 115 H Alkaline Phosphatase 611 H Ammonia Total Protein 5.7 L Albumin 3.4 Globulin 2.3 Albumin/Globulin Ratio 1.5 Triglycerides 143 Cholesterol 79 LDL Cholesterol 47 HDL Cholesterol 3.1 Digoxin Plan - Plan Treatment Plan: Name: LI QUINTEROS Birthdate: 1960 [id number] #Q15 minute observation # The patient requires medical stabilization and hospitalist team is in the process of setting up transfer to another care facility. # Collaboration with Rail Switchman Cora Starr # Medicine was consulted and plan to transfer the patient today #Continue to monitor vital signs Continued Medication Management: Continue Outpt Medication Medications: Current Medications Cholestyramine Resin (Questran*) 4 gm PO BID@1100,2300 [facility] Last Admin: 12/27/18 00:59 Dose: Not Given Digoxin (Lanoxin Tab*) 0.125 mg PO DAILY@1700 [facility] Last Admin: 12/26/18 17:00 Dose: 0.125 mg Diltiazem HCl (Cardizem Cd Cap*) 240 mg PO DAILY [facility] Last Admin: 12/26/18 10:40 Dose: 240 mg Hydroxyzine HCl (Atarax Tab*) 25 mg PO Q6H PRN PRN Reason: itching Metoprolol Tartrate (Lopressor Tab*) 100 mg PO BID [facility] Last Admin: 12/26/18 21:06 Dose: 100 mg Ondansetron HCl (Zofran Odt Tab*) 4 mg PO Q6H PRN PRN Reason: NAUSEA/VOMITING Oxybutynin Chloride (Ditropan Xl Tab*) 10 mg PO DAILY [facility] Last Admin: 12/26/18 10:40 Dose: 10 mg - Discharge Plan Discharge Plan: Outpatient Follow Up Outpatient Program: [facility]
[2018-12-27] MEDS: Diltiazem CD CAP* 240 MG PO SCH (11:48)
[2018-12-27] MEDS: Metoprolol Tartrate TAB* 100 MG TAB PO SCH ×2 (11:48→20:09)
[2018-12-27] MEDS: Oxybutynin XL TAB* 5 MG PO SCH (11:48)
[2018-12-27 16:39] VITALS: BP 152/83
[2018-12-27] MEDS: Digoxin TAB* 0.125 MG PO SCH (16:48)
--- NOTE | 2018-12-27 17:11 | PN ---
Subjective Date of Service: 12/27/18 Interval History: patient seen today he remains on the behavioral units. last time I did speak to the transfer center at all 3 facilities ([facility], [facility] and [facility]) all three of the facilities are still with no available beds. At this time I will accept the patient the medical service if he does not have bed this evening. Patient seen, he is in no distress, no fever, no chills and no abdominal pain Past Medical History: Unchanged from Admission Objective Active Medications: Cholestyramine Resin (Questran*) 4 gm PO BID@1100,2300 [facility] Last Admin: 12/27/18 11:49 Dose: 4 gm Digoxin (Lanoxin Tab*) 0.125 mg PO DAILY@1700 [facility] Last Admin: 12/27/18 16:48 Dose: 0.125 mg Diltiazem HCl (Cardizem Cd Cap*) 240 mg PO DAILY [facility] Last Admin: 12/27/18 11:48 Dose: 240 mg Hydroxyzine HCl (Atarax Tab*) 25 mg PO Q6H PRN PRN Reason: itching Metoprolol Tartrate (Lopressor Tab*) 100 mg PO BID [facility] Last Admin: 12/27/18 11:48 Dose: 100 mg Ondansetron HCl (Zofran Odt Tab*) 4 mg PO Q6H PRN PRN Reason: NAUSEA/VOMITING Oxybutynin Chloride (Ditropan Xl Tab*) 10 mg PO DAILY [facility] Last Admin: 12/27/18 11:48 Dose: 10 mg Vital Signs - 8 hr 12/27/18 12/27/18 12/27/18 10:48 13:03 16:38 Temperature 98.1 F 98.7 F Pulse Rate 112 86 Respiratory 16 16 16 Rate Blood Pressure 118/77 152/83 (mmHg) O2 Sat by Pulse 100 96 Oximetry 12/27/18 16:48 Temperature Pulse Rate 88 Respiratory Rate Blood Pressure (mmHg) O2 Sat by Pulse Oximetry Oxygen Devices in Use Now: None Appearance: awake, delerious but no behaioral issues. Eyes: - - icteric sclera Neck: NL Appearance and Movements; NL JVP Respiratory: Symmetrical Chest Expansion and Respiratory Effort, Clear to Auscultation Cardiovascular: NL Sounds; No Murmurs; No JVD, - - + 2 edema bilateral Result Diagrams: 12/27/18 08:51 12/27/18 08:51 Additional Lab and Data: Lab Results 12/23/18 12/23/18 12/23/18 Range/Units 11:56 11:56 11:56 WBC 7.1 (3.5-10.8) 10^3/uL RBC 3.88 L (4.18-5.48) 10^6 /uL Hgb 12.3 L (14.0-18.0) g/dL Hct 36 L (42-52) % MCV 93 (80-94) fL MCH 32 H (27-31) pg MCHC 34 (31-36) g/dL RDW 17 H (10-15) % Plt Count 246 (150-450) 10^3/uL MPV 9.1 (7.4-10.4) fL Neut % (Auto) 76.7 % Lymph % (Auto) 9.2 % Clare % (Auto) 10.9 % Eos % (Auto) 2.7 % Baso % (Auto) 0.5 % Absolute Neuts (auto) 5.4 (1.5-7.7) 10^3/ul Absolute Lymphs (auto) 0.7 L (1.0-4.8) 10^3/ul Absolute Monos (auto) 0.8 (0-0.8) 10^3/ul Absolute Eos (auto) 0.2 (0-0.6) 10^3/ul Absolute Basos (auto) 0.0 (0-0.2) 10^3/ul Absolute Nucleated RBC 0.0 10^3/ul Nucleated RBC % 0.1 Sodium 136 (135-145) mmol/L Potassium 4.2 (3.5-5.0) mmol/L Chloride 103 (101-111) mmol/L Carbon Dioxide 27 (22-32) mmol/L Anion Gap 6 (2-11) mmol/L BUN 40 H (6-24) mg/dL Creatinine 1.17 (0.67-1.17) mg/dL Est GFR ( Amer) 77.7 (>60) Est GFR (Non-Af Amer) 64.3 (>60) BUN/Creatinine Ratio 34.2 H (8-20) Glucose 101 H (70-100) mg/dL Calcium 9.3 (8.6-10.3) mg/dL Total Bilirubin 11.10 H (0.2-1.0) mg/dL Direct Bilirubin 6.50 H (0.03-0.18) mg/dL Indirect Bilirubin 4.6 H (0.3-1.0) mg/dL AST 145 H (13-39) U/L ALT 134 H (7-52) U/L Alkaline Phosphatase 664 H (34-104) U/L B-Natriuretic Peptide 110 H (<=100) pg/mL Total Protein 5.8 L (6.4-8.9) g/dL Albumin 3.5 (3.2-5.2) g/dL Globulin 2.3 (2-4) g/dL Albumin/Globulin Ratio 1.5 (1-3) Amylase 27 L (29-103) U/L Lipase 42 (11.0-82.0) U/L TSH 0.63 (0.34-5.60) mcIU/mL Urine Color Urine Appearance Urine pH (5-9) Ur Specific Curtis (1.010-1.030) Urine Protein (Negative) Urine Ketones (Negative) Urine Blood (Negative) Urine Nitrate (Negative) Urine Bilirubin (Negative) Urine Urobilinogen (Negative) Ur Leukocyte Esterase (Negative) Urine WBC (Auto) (Absent) Urine RBC (Auto) (Absent) Ur Squamous Epith Cells (Absent) Urine Bacteria (Absent) Urine Glucose (Negative) Urine Ascorbic Acid (Negative) Salicylates < 2.50 (<30) mg/dL Urine Opiates Screen (None Detect) Acetaminophen < 15 mcg/mL Ur Barbiturates Screen (None Detect) Ur Phencyclidine Scrn (None Detect) Ur Amphetamines Screen (None Detect) U Benzodiazepines Scrn (None Detect) Urine Cocaine Screen (None Detect) U Cannabinoids Screen (None Detect) Serum Alcohol < 10 (<10) mg/dL 12/23/18 12/23/18 Range/Units 12:22 12:22 WBC (3.5-10.8) 10^3/uL RBC (4.18-5.48) 10^6 /uL Hgb (14.0-18.0) g/dL Hct (42-52) % MCV (80-94) fL MCH (27-31) pg MCHC (31-36) g/dL RDW (10-15) % Plt Count (150-450) 10^3/uL MPV (7.4-10.4) fL Neut % (Auto) % Lymph % (Auto) % Clare % (Auto) % Eos % (Auto) % Baso % (Auto) % Absolute Neuts (auto) (1.5-7.7) 10^3/ul Absolute Lymphs (auto) (1.0-4.8) 10^3/ul Absolute Monos (auto) (0-0.8) 10^3/ul Absolute Eos (auto) (0-0.6) 10^3/ul Absolute Basos (auto) (0-0.2) 10^3/ul Absolute Nucleated RBC 10^3/ul Nucleated RBC % Sodium (135-145) mmol/L Potassium (3.5-5.0) mmol/L Chloride (101-111) mmol/L Carbon Dioxide (22-32) mmol/L Anion Gap (2-11) mmol/L BUN (6-24) mg/dL Creatinine (0.67-1.17) mg/dL Est GFR ( Amer) (>60) Est GFR (Non-Af Amer) (>60) BUN/Creatinine Ratio (8-20) Glucose (70-100) mg/dL Calcium (8.6-10.3) mg/dL Total Bilirubin (0.2-1.0) mg/dL Direct Bilirubin (0.03-0.18) mg/dL Indirect Bilirubin (0.3-1.0) mg/dL AST (13-39) U/L ALT (7-52) U/L Alkaline Phosphatase (34-104) U/L B-Natriuretic Peptide (<=100) pg/mL Total Protein (6.4-8.9) g/dL Albumin (3.2-5.2) g/dL Globulin (2-4) g/dL Albumin/Globulin Ratio (1-3) Amylase (29-103) U/L Lipase (11.0-82.0) U/L TSH (0.34-5.60) mcIU/mL Urine Color Nadya Urine Appearance Clear Urine pH 6.0 (5-9) Ur Specific Curtis 1.017 (1.010-1.030) Urine Protein Negative (Negative) Urine Ketones Negative (Negative) Urine Blood 2+ A (Negative) Urine Nitrate Negative (Negative) Urine Bilirubin Negative (Negative) Urine Urobilinogen Positive A (Negative) Ur Leukocyte Esterase Negative (Negative) Urine WBC (Auto) Trace(0-5/hpf) (Absent) Urine RBC (Auto) 3+(>10/hpf) A (Absent) Ur Squamous Epith Cells Present A (Absent) Urine Bacteria Absent (Absent) Urine Glucose Negative (Negative) Urine Ascorbic Acid * A (Negative) Salicylates (<30) mg/dL Urine Opiates Screen None detected (None Detect) Acetaminophen mcg/mL Ur Barbiturates Screen None detected (None Detect) Ur Phencyclidine Scrn None detected (None Detect) Ur Amphetamines Screen None detected (None Detect) U Benzodiazepines Scrn None detected (None Detect) Urine Cocaine Screen None detected (None Detect) U Cannabinoids Screen None detected (None Detect) Serum Alcohol (<10) mg/dL Microbiology and Other Data: Microbiology 12/24/18 05:45 Nasal Screen MRSA (PCR) - Final Nasal Mrsa Not Detected Assess/Plan/Problems-Billing Mr Prado is a 58 yo M who has a h/o paranoid schizophrenia not on any medications and afib who presented to the ER with c/o itching from what he thought was bugs in his bed but was found to have hyperbilirubinemia and on imaging found to have a 2.7cm pancreatic head mass. - Patient Problems (1) Afib Current Visit: Yes Status: Acute Code(s): I48.91 - UNSPECIFIED ATRIAL FIBRILLATION SNOMED Code(s): 60010263 Comment: - HR controlled on diltiazem CD 240 mg daily, metoprolol 100 mg b po bid, and digoxin 125 mcg daily - Keep pradaxa on hold start as of 12/25/18 in anticipation of needing ERCP soon. Will start heparin SQ for DVT Prohylaxis starting 12/27/18 if he was to remain in our facility (2) Lower extremity edema Current Visit: Yes Status: Acute Code(s): R60.0 - LOCALIZED EDEMA SNOMED Code(s): 810351557 Comment: - Unclear cause. - US 12/23/18 negative for DVT. His Albumin ok. and UA negative for protein - Will need to keep his leg elevated. Apply DANITZA lowe. - Will check Echo to assess for LV functions in am as he has not been offered a bed yet. At this time we are waiting for bed availability at 3 different facility ([facility], [facility] in [place], and [facility] in [place]). - However will accept him to the medical service if there is no bed availability (3) Pancreatic mass Current Visit: Yes Status: Acute Comment: - Pt needs ERCP for stent and possible EUS for biopsy. Likely pancreatic carcinoma. although it is not needed on emergen basis but it is urgent to proceed with evaluations given his persistent elevations of his Bilirubin now up to 18 - Unfortunately Dr. Baeza is away on vacation and not available until next week. he is still fever free and without climbing WBC count or abdominal pain bu this can change at any time hence the urgency to transfer him to a [facility] center where this service is available. - Continue cholestyramine and prn hydoxyzine for itching. - I placed transfer request to 3 different facilities and none of them has available bed. of 12/26/18 (#1 [facility] I spoke with hospitalist Dr. Luciano and has accepted the patient but we are waiting for bed #2 [facility] in [place] I spoke to GI Dr. Vail who accepted the patient and hospitalist Dr. Noble who accepted the patient, however there was no available bed #3 [facility] in [place] I spoke to Harlan LOPEZ attending who accepted the patient, however hospital decline to speak Doc to Doc as they do not have bed available and will call for Doc to doc once bed available) At this time will accept him to the medical floor if he has not bed by the end of today. (4) Paranoid schizophrenia Current Visit: Yes Status: Acute Code(s): F20.0 - PARANOID SCHIZOPHRENIA SNOMED Code(s): 53076061 Comment: - Per psychiatry - no need for psych meds. He does not need 1:1 as he does not have suicidal or behavioral issue. Please refer to the transfer summary by psychiatry. He does required psych meds (5) DVT prophylaxis Current Visit: Yes Status: Acute Code(s): Z29.9 - ENCOUNTER FOR PROPHYLACTIC MEASURES, UNSPECIFIED SNOMED Code(s): 786234739 Comment: - Was on pradaxa will start heparin SQ in am
[2018-12-28] MEDS ORDERED: Heparin VIAL(*) 5000 UNITS/ML VIAL (FIVE THOUSAND) SUBCUT SCH (08:00)
== END 2018-12-27 20:08 | disposition short-term general hospital (02) | DRG 885 ==
LOC: ED 10:25 → MED 22:48 → BSU 12-24 18:30
PROVIDERS: ADMIT Psychiatry & Neurology Psychiatry; ATTEND Psychiatry & Neurology Psychiatry
DX: F20.0 Paranoid schizophrenia (principal); R17 Unspecified jaundice; F20.9 Schizophrenia, unspecified; I48.91 Unspecified atrial fibrillation; I12.9 Hypertensive chronic kidney disease with stage 1 through stage 4 chronic kidney disease, or unspecified chronic kidney disease; N18.3 Chronic kidney disease, stage 3 (moderate); E11.22 Type 2 diabetes mellitus with diabetic chronic kidney disease; J44.9 Chronic obstructive pulmonary disease, unspecified; G47.33 Obstructive sleep apnea (adult) (pediatric); K21.9 Gastro-esophageal reflux disease without esophagitis; N32.81 Overactive bladder; E78.5 Hyperlipidemia, unspecified; K86.89 Other specified diseases of pancreas; E80.6 Other disorders of bilirubin metabolism; R60.0 Localized edema; Z81.1 Family history of alcohol abuse and dependence; Z88.8 Allergy status to other drugs, medicaments and biological substances; Z91.14 Patient's other noncompliance with medication regimen; Z87.891 Personal history of nicotine dependence; Z56.0 Unemployment, unspecified
CPT/HCPCS: 36415; 74178; 76705; 80048; 80053; 80061; 80076; 80162; 80307; 80320; 80329; 81003; 81015; 82140; 82150; 82247; 82248; 83036; 83690; 83735; 83880; 84443; 85025; 85610; 87086; 87641; 93005; 93970; 99222; 99238; 99283; A9270-GY; G0480; J1644; Q9967

== ENCOUNTER 2019-01-06 11:56 | Inpatient (IN) | payer MEDICARE, MEDICAID ==
--- NOTE | 2019-01-06 12:30 | ED ---
Psychiatric Complaint - History Of Current Complaint Chief Complaint: EDMentalHealth Time Seen by Provider: 01/06/19 12:09 - Allergies/Home Medications Allergies/Adverse Reactions: Allergies Allergy/AdvReac Type Severity Reaction Status Date / Time fluphenazine [From Prolixin] Allergy Shortness Verified 12/23/18 10:33 of Breath heparin Allergy See Comment Verified 12/23/18 10:33 ziprasidone [From Geodon] Allergy See Comment Verified 12/23/18 10:33 PMH/Surg Hx/FS Hx/Imm Hx Endocrine/Hematology History: Denies: Hx Diabetes Cardiovascular History: Denies: Hx Hypertension History: Denies: Hx Renal Disease Sensory History: Reports: Hx Contacts or Glasses Denies: Hx Hearing Aid Opthamlomology History: Reports: Hx Contacts or Glasses Psychiatric History: Denies: Hx Eating Disorder, Hx of Violent Episodes Against Others Infectious Disease History: No Infectious Disease History: Denies: Traveled Outside the [place] in Last 30 Days - Social History Alcohol Use: None Hx Substance Use: No Substance Use Type: Reports: None Hx Tobacco Use: No Smoking Status (MU): Never Smoked Tobacco Review of Systems Negative: Fever Positive: Anxious All Other Systems Reviewed And Are Negative: Yes Physical Exam Triage Information Reviewed: Yes Vital Signs On Initial Exam: Initial Vitals Temp Pulse Resp BP Pulse Ox 97.8 F 58 16 127/73 99 01/06/19 12:00 01/06/19 12:00 01/06/19 12:00 01/06/19 12:00 01/06/19 12:00 Vital Signs Reviewed: Yes Diagnostics - Vital Signs Vital Signs Temp Pulse Resp BP Pulse Ox 01/06/19 12:00 97.8 F 58 16 127/73 99 - Laboratory Lab Statement: Any lab studies that have been ordered have been reviewed, and results considered in the medical decision making process. Discharge - Discharge Plan Referrals: No Primary Care Phys,NOPCP [Primary Care Provider] - - Attestation Statements Document Initiated by Scribe: Yes Documenting Scribe: Clifford Diaz Provider For Whom Scribe is Documenting (Include Credential): Gonzalo Benito MD Scribe Attestation: Clifford Hadley, scribed for Gonzalo Benito MD on 01/06/19 at 1224.
[2019-01-06 12:35] LABS: Urine Appearance Cloudy; Urine Bacteria Absent (Absent); Urine Bilirubin 2+ (Negative); Urine Blood 2+ (Negative); Urine Color Amber; Urine Glucose Negative (Negative); Urine Ketones Negative (Negative); Urine Nitrite Negative (Negative); Urine Protein Negative (Negative); Urine Red Blood Cell 3+(>10/hpf) (Absent); Urine Specific Gravity 1.016 (1.010-1.030); Urine Squamous Epithelial Cell Present (Absent); Urine Urobilinogen Positive (Negative); Urine White Blood Cell Trace(0-5/hpf) (Absent)
[2019-01-06 12:52] LABS: ABS Basophils 0.1 10^3/ul (0-0.2); ABS Eosinophils 0.1 10^3/ul (0-0.6); ABS Lymphocytes 0.5 10^3/ul (1.0-4.8); ABS Monocytes 0.8 10^3/ul (0-0.8); ABS Neutrophils 6.3 10^3/ul (1.5-7.7); Eosinophil % 0.8 %; Hematocrit 34 % (42-52); Hemoglobin 11.7 g/dL (14.0-18.0); Lymphocyte % 6.6 %; Mean Corpuscular HGB Conc 35 g/dL (31-36); Mean Corpuscular Hemoglobin 34 pg (27-31); Mean Corpuscular Volume 97 fL (80-94); Mean Platelet Volume 8.5 fL (7.4-10.4); Platelet Count 284 10^3/uL (150-450); Red Blood Count 3.46 10^6 /uL (4.18-5.48); Red Cell Distribution Width 22 % (10-15); White Blood Count 7.7 10^3/uL (3.5-10.8)
--- NOTE | 2019-01-06 13:09 | ED ---
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 He states that he may have had a fall secondary to his swollen legs. He rates his current pain severity a 0/10. Per the triage, Pt recently seen here at [facility] for MHE because he was seeing bedbugs, was delusional , and very anxious. Pt was transferred to [facility] for evaluation and discharged because he refused treatment. However, he denies currently hallucinating or seeing bugs. No alleviating or aggravating factors noted. He also reports jaundice and cough but denies pancreatic CA. Pt firmly states that he only wants to be treated for his foot pain and leg swelling. - History of Current Complaint Chief Complaint: EDMentalHealth Stated Complaint: MENTAL HEALTH PER [facility] Time Seen by Provider: 01/06/19 12:09 Hx Obtained From: Patient Onset of Pain: Days Onset/Duration: Days Severity Initially: Mild Severity Currently: None Pain Intensity: 0 Pain Scale Used: 0-10 Numeric Timing: Constant Location: Is Discrete @ - feet Associated Signs And Symptoms: Positive: Swelling, Other - pos - jaundice, cough Aggravating Factor(s): Nothing Alleviating Factor(s): Nothing - Allergies/Home Medications Allergies/Adverse Reactions: Allergies Allergy/AdvReac Type Severity Reaction Status Date / Time fluphenazine [From Prolixin] Allergy Shortness Verified 12/23/18 10:33 of Breath heparin Allergy See Comment Verified 12/23/18 10:33 ziprasidone [From Geodon] Allergy See Comment Verified 12/23/18 10:33 PMH/Surg Hx/FS Hx/Imm Hx Endocrine/Hematology History: Denies: Hx Diabetes Cardiovascular History: Denies: Hx Hypertension History: Denies: Hx Renal Disease Sensory History: Reports: Hx Contacts or Glasses Denies: Hx Hearing Aid Opthamlomology History: Reports: Hx Contacts or Glasses Psychiatric History: Denies: Hx Eating Disorder, Hx of Violent Episodes Against Others - Surgical History Surgical History: None Surgery Procedure, Year, and Place: None Infectious Disease History: No Infectious Disease History: Denies: Traveled Outside the [place] in Last 30 Days - Family History Known Family History: Positive: Hypertension - Social History Alcohol Use: None Hx Substance Use: No Substance Use Type: Reports: None Hx Tobacco Use: No Smoking Status (MU): Never Smoked Tobacco Review of Systems Positive: Cough Positive: Edema, Other - pos - foot pain Positive: Other - pos - jaundic Neurological: Other - neg - hallucinations All Other Systems Reviewed And Are Negative: Yes Physical Exam - Summary Physical Exam Summary: GENERAL: Patient is a well-developed and nourished male who is lying comfortable in the stretcher. Patient is not in any acute respiratory distress. HEAD AND FACE: Normocephalic EYES: PERRLA, EOMI x 2. EARS: Hearing grossly intact. MOUTH: Oropharynx within normal limits. NECK: Supple, trachea is midline, no adenopathy, no JVD, no carotid bruit. CHEST: Symmetric, no tenderness at palpation LUNGS: Clear to auscultation bilaterally. Crackles in the bases bilaterally. CVS: Regular rate and rhythm, S1 and S2 present, no murmurs or gallops appreciated. ABDOMEN: Soft, non-tender. Bowel sounds are normal. No abnormal abdominal pulsations. EXTREMITIES: Full ROM in all major joints, 3+ pitting edema on right leg and 2 + on the left leg, no cyanosis or clubbing. NEURO: Alert and oriented x 3. No acute neurological deficits. Speech is normal and follows commands. PSYCH: No suicidal or homicidal ideation. SKIN: Dry and warm. Mild Excoriation. Triage Information Reviewed: Yes Vital Signs On Initial Exam: Initial Vitals Temp Pulse Resp BP Pulse Ox 97.8 F 58 16 127/73 99 01/06/19 12:00 01/06/19 12:00 01/06/19 12:00 01/06/19 12:00 01/06/19 12:00 Vital Signs Reviewed: Yes Diagnostics - Vital Signs Vital Signs Temp Pulse Resp BP Pulse Ox 01/06/19 12:00 97.8 F 58 16 127/73 99 - Laboratory Lab Results: Lab Results 01/06/19 01/06/19 Range/Units 12:22 12:40 WBC 7.7 (3.5-10.8) 10^3/uL RBC 3.46 L (4.18-5.48) 10^6 /uL Hgb 11.7 L (14.0-18.0) g/dL Hct 34 L (42-52) % MCV 97 H (80-94) fL MCH 34 H (27-31) pg MCHC 35 (31-36) g/dL RDW 22 H (10-15) % Plt Count 284 (150-450) 10^3/uL MPV 8.5 (7.4-10.4) fL Neut % (Auto) 81.7 % Lymph % (Auto) 6.6 % [place] % (Auto) 10.2 % Eos % (Auto) 0.8 % Baso % (Auto) 0.7 % Absolute Neuts (auto) 6.3 (1.5-7.7) 10^3/ul Absolute Lymphs (auto) 0.5 L (1.0-4.8) 10^3/ul Absolute Monos (auto) 0.8 (0-0.8) 10^3/ul Absolute Eos (auto) 0.1 (0-0.6) 10^3/ul Absolute Basos (auto) 0.1 (0-0.2) 10^3/ul Absolute Nucleated RBC 0.0 10^3/ul Nucleated RBC % 0.0 Urine Color Nadya Urine Appearance Cloudy Urine pH 6.0 (5-9) Ur Specific [place] 1.016 (1.010-1.030) Urine Protein Negative (Negative) Urine Ketones Negative (Negative) Urine Blood 2+ A (Negative) Urine Nitrate Negative (Negative) Urine Bilirubin 2+ A (Negative) Urine Urobilinogen Positive A (Negative) Ur Leukocyte Esterase Negative (Negative) Urine WBC (Auto) Trace(0-5/hpf) (Absent) Urine RBC (Auto) 3+(>10/hpf) A (Absent) Ur Squamous Epith Cells Present A (Absent) Urine Bacteria Absent (Absent) Urine Glucose Negative (Negative) Urine Ascorbic Acid * A (Negative) Result Diagrams: 01/06/19 12:40 01/06/19 12:40 Lab Statement: Any lab studies that have been ordered have been reviewed, and results considered in the medical decision making process. - Radiology Ankle XR Radiology Interpretation Completed By: Radiologist Summary of Radiographic Findings: REPORT AND IMPRESSION: #. Negative for fracture, osteochondral lesion, or articular malalignment. #. Mild nonfocal soft tissue swelling. #. Small plantar fascia origin bone spur. ED Physician has reviewed this report. CXR Radiology Interpretation Completed By: Radiologist Summary of Radiographic Findings: IMPRESSION: #. Stigmata of obstructive lung disease. #. No evidence for pneumonia. #. No radiographic evidence for thoracic metastatic disease. ED Physician has reviewed this report. - CT Brain CT CT Interpretation Completed By: Radiologist Summary of CT Findings: IMPRESSION: #. Mild involutional change. #. No acute intracranial process evident. ED Physician has reviewed this report. CT A/P CT Interpretation Completed By: Radiologist Summary of CT Findings: IMPRESSION: #. Significant interval worsening of severe intra and extrahepatic biliary dilatation compared with the December 23, 2018 exam. This is likely secondary to local extension of pancreatic tumor or satellite lesion at the ampulla. ED Physician has reviewed this report. - Ultrasound Venous Doppler Ultrasound Interpretation Completed By: Radiologist Summary of Ultrasound Findings: IMPRESSION: #. Negative for above-knee RIGHT lower extremity DVT. #. The more posterior peroneal calf vein appears thrombosed. Re-Evaluation - Re-Evaluation First Eval Re-Evaluation Time: 13:40 - Pt wants a CT scan of his pancreas. Second Eval Re-Evaluation Time: 15:49 - CT A/P results discussed with pt. 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 Physical exam was only notable for 3 + pitting edema on the right and 2 + on the right, crackles in the bases bilaterally, and mild excoriation. Test results normal except for RBC @ 3.46, Hgb @ 11.7, Hct @ 34, RDW @ 22, Absolute Lymphs @ 0.5, BUN @ 38, Creatinine @ 1.38, BUN/Creatinine @ 27.5, Total bilirubin @ 32.70, Direct bilirubin @ 22.4, Indirect bilirubin @ 10.3, AST @ 86, ALT @ 78, Alkaline Phosphatase @ 537, BNP @ 291, Total protein @ 5.1, Albumin @ 3.1, 2+ Ur Blood, 2+ Ur Bilirubin, Ur Urobilinogen Positive, 3+ Ur RBC, Ur Squamous Epith Cells Present, and Urine Ascorbic Acid *. Brain CT reveals: #. Mild involutional change. #. No acute intracranial process evident. Venous doppler reveals: #. Negative for above- knee RIGHT lower extremity DVT. #. The more posterior peroneal calf vein appears thrombosed. Ankle XR reveals: #. Negative for fracture, osteochondral lesion, or articular malalignment. #. Mild nonfocal soft tissue swelling. #. Small plantar fascia origin bone spur. CXR reveals: #. Stigmata of obstructive lung disease. #. No evidence for pneumonia. #. No radiographic evidence for thoracic metastatic disease. CT A/P reveals: #. Significant interval worsening of severe intra and extrahepatic biliary dilatation compared with the December 23, 2018 exam. This is likely secondary to local extension of pancreatic tumor or satellite lesion at the ampulla. Consult @ 1500 with pt's GI physician to discuss pt's lab and imaging results. The pt will be admitted to [facility]. Case discussed with hospitalist. I discussed results with patient. The patient agrees with this plan. - Diagnoses Provider Diagnoses: Peroneal DVT (deep venous thrombosis), Obstructive jaundice - Physician Notifications Discussed Care Of Patient With: Pelon Putnam - Dr. Putnam will admit the pt to [facility]. Time Discussed With Above Provider: 14:30 Instructed by Provider To: Admit As Inpatient - Critical Care Time Critical Care Time: 30-74 min - 30 minutes Discharge - Sign-Out/Discharge Documenting (check all that apply): Patient Departure - Admit Patient Received Moderate/Deep Sedation with Procedure: No - Discharge Plan Condition: Stable Disposition: ADMITTED TO [facility] Referrals: No Primary Care Phys,NOPCP [Primary Care Provider] - - Billing Disposition and Condition Condition: STABLE Disposition: Admitted to [facility] - Attestation Statements Document Initiated by Sisi: Yes Documenting Scribe: Vasu Hernandez Provider For Whom Sisi is Documenting (Include Credential): Rajendra Haskins MD Scribe Attestation: IVasu, scribed for Rajendra Haskins MD on 01/06/19 at 1738. Scribe Documentation Reviewed: Yes Provider Attestation: The documentation as recorded by the Vasu cantu accurately reflects the service I personally performed and the decisions made by me, Rajendra Haskins MD Status of Scribe Document: Viewed
[2019-01-06 13:11] LABS: ALT 78 U/L (7-52); AST 86 U/L (13-39); Albumin 3.1 g/dL (3.2-5.2); Albumin/Globulin Ratio 1.6 (1-3); Alkaline Phosphatase 537 U/L (34-104); Anion Gap 7 mmol/L (2-11); BUN/Creatinine Ratio 27.5 (8-20); Blood Urea Nitrogen 38 mg/dL (6-24); CO2 Carbon Dioxide 22 mmol/L (22-32); Chloride 109 mmol/L (101-111); EGFR African American 64.3 (>60); EGFR Non-African American 53.1 (>60); Glucose 86 mg/dL (70-100); Potassium 4.1 mmol/L (3.5-5.0); Sodium 138 mmol/L (135-145); Total Protein 5.1 g/dL (6.4-8.9)
[2019-01-06 13:13] LABS: Urine Benzodiazepine Screen None Detected (None Detect); Urine Opiates Screen None Detected (None Detect)
[2019-01-06 13:27] LABS: Indirect Bilirubin 10.3 mg/dL (0.3-1.0); Total Bilirubin 32.7 mg/dL (0.2-1.0)
[2019-01-06 13:32] LABS: Acetaminophen < 15 mcg/mL; Alcohol < 10 mg/dL (<10); Salicylate < 2.50 mg/dL (<30)
[2019-01-06 13:45] LABS: TSH (Thyroid Stimulating Horm) 1.85 mcIU/mL (0.34-5.60)
[2019-01-06] MEDS ORDERED: Iodixanol* (CONTRAST) 320 MG/ML 100 ML SDV IV ONE (14:24)
[2019-01-06 16:24] LABS: INR 1.12 (0.82-1.09)
[2019-01-06 16:35] LABS: Digoxin 1.4 ng/ml (0.8-2.0)
--- NOTE | 2019-01-06 17:21 | ADMNOTE ---
Subjective Date of Service: 01/06/19 Interval History: ADMISSION HISTORY AND PHYSICAL EXAM: Allergies Allergy/AdvReac Type Severity Reaction Status Date / Time fluphenazine [From Prolixin] Allergy Shortness Verified 12/23/18 10:33 of Breath heparin Allergy See Comment Verified 12/23/18 10:33 ziprasidone [From Geodon] Allergy See Comment Verified 12/23/18 10:33 Home Medications Medication Instructions Recorded Confirmed Type Calcium Carbonate/Vitamin D3 1 tab PO BID 12/23/18 01/06/19 History [Calcium 600-Vit D3 400 Tablet] Dabigatran Etexilate Mesylate 150 mg PO BID 12/23/18 01/06/19 History [Pradaxa] Digoxin [Digitek] 0.125 mg PO DAILY 12/23/18 01/06/19 History Docusate Sodium [Dok] 100 mg PO BID 12/23/18 01/06/19 History Metoprolol Tartrate 100 mg PO BID 12/23/18 01/06/19 History Multivit-Min/FA/Lycopen/Lutein 1 tab PO DAILY 12/23/18 01/06/19 History [Sentry Senior Tablet] Tolterodine Tartrate [Tolterodine 4 mg PO DAILY 12/23/18 01/06/19 History Tartrate ER] dilTIAZem HCl [Diltiazem HCl ER] 240 mg PO DAILY 12/23/18 01/06/19 History HPI: The patient was sent to the ED by [facility] where he resides because they felt he was no longer safe there and they could not take care of him. He has been consistently refusing all his medications since before his recent hospitalizations. They are requesting a psych eval and I was told they would consider taking him back if there was a court order for him to take his meds. The patient tells me he refused the tests offered him at [facility]. He is requesting his tumor/biliary obstruction be treated by "emulsification." Family History: Findings - unknown. Social History: Findings - Lives at [facility]. Kelin Veliz is his SDM. Quit smoking 8 yrs ago. No alcohol abuse. Past Medical History: Findings - WILL, paranoid schizophrenia, HTN, CKD, COPD, atrial fib, GERD, overactive bladder. Review of Systems - Measurements Intake and Output: Intake and Output Last 24 Hours 01/04/19 01/05/19 01/06/19 01/07/19 06:59 06:59 06:59 06:59 Weight 211 lb - Review of Systems Constitutional Symptoms: Negative: Weight Gain, Weight Loss, Weakness, Fatigue, Fever, Night Sweats, Unexplained Falls, Other Dermatology: Positive: Rash HEENT: Positive: Normal Eyes: Positive: Normal Thyroid: Positive: Normal Pulmonary: Positive: Normal Gastroenterology: Positive: Other - jaundice Genital - Urinary: Positive: Other - overactive bladder Endocrinology: Positive: Diabetes Mellitus Hematologic/Lymphatic: Positive: Anemia Neurology: Positive: Normal Psychiatry: Positive: Other - parnoid schizophrenia Allergic/Immunologic: Negative: Hx Anaphylaxis, Hx Angioedema, Hx Environmental, Hx Seasonal, Asthma, Hx HIV, Immunocompromise, Swollen Glands LymphNodes, Other Objective Active Medications: Dabigatran (Pradaxa Cap(Nf)) 150 mg PO BID [facility] Digoxin (Lanoxin Tab*) 0.125 mg PO DAILY [facility] Diltiazem HCl (Cardizem Cd Cap*) 240 mg PO DAILY [facility] Docusate Sodium (Colace Cap*) 100 mg PO BID [facility] Hydroxyzine HCl (Atarax Tab*) 50 mg PO Q4H PRN PRN Reason: pruritus Metoprolol Tartrate (Lopressor Tab*) 100 mg PO BID [facility] Vital Signs - 8 hr 01/06/19 01/06/19 01/06/19 12:00 12:19 12:31 Temperature 97.8 F Pulse Rate 58 74 88 Respiratory 16 Rate Blood Pressure 127/73 110/55 (mmHg) O2 Sat by Pulse 99 99 95 Oximetry 01/06/19 01/06/19 01/06/19 13:00 13:01 14:46 Temperature Pulse Rate 90 78 77 Respiratory Rate Blood Pressure 104/63 (mmHg) O2 Sat by Pulse 95 99 97 Oximetry 01/06/19 01/06/19 15:00 16:00 Temperature Pulse Rate 77 90 Respiratory Rate Blood Pressure (mmHg) O2 Sat by Pulse 98 96 Oximetry Oxygen Devices in Use Now: None Appearance: Alert, partly up on ED stretcher. In fair spirits, looks comfortable, scratching himself at times. Respiratory: Symmetrical Chest Expansion and Respiratory Effort, Clear to Auscultation, Clear to Percussion Cardiovascular: NL Sounds; No Murmurs; No JVD, RRR, No Edema, - Abdominal: - - obese, soft, not tender. nl BS. Extremities: No Clubbing, Cyanosis, - - 3+ edema BL, no tenderness Skin: No Nodules or Sclerosis, - - Both lower legs mildly pink, numerous excoriations. Neurological: Alert and Oriented x 3, NL Sensation Result Diagrams: 01/06/19 12:40 01/06/19 12:40 Additional Lab and Data: Lab Results 01/06/19 01/06/19 Range/Units 12:22 12:40 WBC 7.7 (3.5-10.8) 10^3/uL RBC 3.46 L (4.18-5.48) 10^6 /uL Hgb 11.7 L (14.0-18.0) g/dL Hct 34 L (42-52) % MCV 97 H (80-94) fL MCH 34 H (27-31) pg MCHC 35 (31-36) g/dL RDW 22 H (10-15) % Plt Count 284 (150-450) 10^3/uL MPV 8.5 (7.4-10.4) fL Neut % (Auto) 81.7 % Lymph % (Auto) 6.6 % [place] % (Auto) 10.2 % Eos % (Auto) 0.8 % Baso % (Auto) 0.7 % Absolute Neuts (auto) 6.3 (1.5-7.7) 10^3/ul Absolute Lymphs (auto) 0.5 L (1.0-4.8) 10^3/ul Absolute Monos (auto) 0.8 (0-0.8) 10^3/ul Absolute Eos (auto) 0.1 (0-0.6) 10^3/ul Absolute Basos (auto) 0.1 (0-0.2) 10^3/ul Absolute Nucleated RBC 0.0 10^3/ul Nucleated RBC % 0.0 Urine Color Nadya Urine Appearance Cloudy Urine pH 6.0 (5-9) Ur Specific [place] 1.016 (1.010-1.030) Urine Protein Negative (Negative) Urine Ketones Negative (Negative) Urine Blood 2+ A (Negative) Urine Nitrate Negative (Negative) Urine Bilirubin 2+ A (Negative) Urine Urobilinogen Positive A (Negative) Ur Leukocyte Esterase Negative (Negative) Urine WBC (Auto) Trace(0-5/hpf) (Absent) Urine RBC (Auto) 3+(>10/hpf) A (Absent) Ur Squamous Epith Cells Present A (Absent) Urine Bacteria Absent (Absent) Urine Glucose Negative (Negative) Urine Ascorbic Acid * A (Negative) Assess/Plan/Problems-Billing Assessment: - Patient Problems (1) Pancreatic mass Current Visit: No Status: Acute Comment: Continue prn hydoxyzine for itching. Cholestyramine might interfere with his other meds and make him constipated. Med compliance could be an issue for him. I will talk to Dr. Baeza about a limited consult. I don't think the patient will ever consent to ERCP or stenting by any means. He is focused very strongly on "emulsification". I told him I don't think there is any hospital that offers this as treatment for his condition. I told him he would if his biliary obstruction was not relieved. (2) Schizophrenia Current Visit: No Status: Acute Code(s): F20.9 - SCHIZOPHRENIA, UNSPECIFIED SNOMED Code(s): 40710497 Comment: Consult requested to determine capacity to refuse SNF placement. (3) Afib Current Visit: No Status: Acute Code(s): I48.91 - UNSPECIFIED ATRIAL FIBRILLATION SNOMED Code(s): 18768254 Comment: Continue his usual meds. I don't think he had any of them for the recent period he was at [facility]. (4) DVT (deep venous thrombosis) Current Visit: Yes Status: Acute Code(s): I82.409 - ACUTE EMBOLISM AND THOMBOS UNSP DEEP VN UNSP LOWER EXTREMITY SNOMED Code(s): 613428781 Comment: Posterior peroneal calf vein thrombosed. Not a dabigatran failure as he was not taking it recently. Continue dabigatran.
[2019-01-06] MEDS: CMC:Dabigatran CAP(NF) 150 MG CAP PO SCH (20:25)
[2019-01-06] MEDS: Docusate CAP* 100 MG PO SCH (20:26)
[2019-01-06] MEDS: Metoprolol Tartrate TAB* 100 MG TAB PO SCH (20:26)
[2019-01-06] MEDS: hydrOXYzine HCL TAB* 50 MG PO PRN (20:38)
[2019-01-07] MEDS: hydrOXYzine HCL TAB* 50 MG PO PRN ×2 (00:28→05:43)
--- NOTE | 2019-01-07 08:27 | PN ---
Subjective Date of Service: 01/07/19 Interval History: Moderate global itching. "What can you do about my leg swelling?" He refuses any diuretic, feels he needs an antibiotic such as ampicillin. Family History: Findings - unknown. Social History: Findings - [facility]. Kelin Veliz is his SDM. Quit smoking 8 yrs ago. No alcohol abuse. Past Medical History: Findings - WILL, paranoid schizophrenia, HTN, CKD, COPD, atrial fib, GERD, overactive bladder. Objective Active Medications: Dabigatran (Pradaxa Cap(Nf)) 150 mg PO BID [facility] Last Admin: 01/06/19 20:25 Dose: 150 mg Digoxin (Lanoxin Tab*) 0.125 mg PO DAILY [facility] Diltiazem HCl (Cardizem Cd Cap*) 240 mg PO DAILY [facility] Docusate Sodium (Colace Cap*) 100 mg PO BID [facility] Last Admin: 01/06/19 20:26 Dose: 100 mg Hydroxyzine HCl (Atarax Tab*) 50 mg PO Q4H PRN PRN Reason: pruritus Last Admin: 01/07/19 05:43 Dose: 50 mg Metoprolol Tartrate (Lopressor Tab*) 100 mg PO BID [facility] Last Admin: 01/06/19 20:26 Dose: 100 mg Vital Signs - 8 hr 01/07/19 01/07/19 03:15 07:23 Temperature 97.6 F 96.9 F Pulse Rate 82 67 Respiratory 24 16 Rate Blood Pressure 105/64 121/75 (mmHg) O2 Sat by Pulse 100 98 Oximetry Oxygen Devices in Use Now: None Appearance: Alert, in a chair. Scratching his arm. In fair spirits. Eyes: - - marked icterus Extremities: No Clubbing, Cyanosis, - - 3-4 + edema BL Skin: No Nodules or Sclerosis, - - faint erythema both lower legs, mild excoriations Neurological: Alert and Oriented x 3, NL Sensation Result Diagrams: 01/06/19 12:40 01/06/19 12:40 Additional Lab and Data: Lab Results 01/06/19 01/06/19 Range/Units 12:22 12:40 WBC 7.7 (3.5-10.8) 10^3/uL RBC 3.46 L (4.18-5.48) 10^6 /uL Hgb 11.7 L (14.0-18.0) g/dL Hct 34 L (42-52) % MCV 97 H (80-94) fL MCH 34 H (27-31) pg MCHC 35 (31-36) g/dL RDW 22 H (10-15) % Plt Count 284 (150-450) 10^3/uL MPV 8.5 (7.4-10.4) fL Neut % (Auto) 81.7 % Lymph % (Auto) 6.6 % [place] % (Auto) 10.2 % Eos % (Auto) 0.8 % Baso % (Auto) 0.7 % Absolute Neuts (auto) 6.3 (1.5-7.7) 10^3/ul Absolute Lymphs (auto) 0.5 L (1.0-4.8) 10^3/ul Absolute Monos (auto) 0.8 (0-0.8) 10^3/ul Absolute Eos (auto) 0.1 (0-0.6) 10^3/ul Absolute Basos (auto) 0.1 (0-0.2) 10^3/ul Absolute Nucleated RBC 0.0 10^3/ul Nucleated RBC % 0.0 Urine Color Nadya Urine Appearance Cloudy Urine pH 6.0 (5-9) Ur Specific [place] 1.016 (1.010-1.030) Urine Protein Negative (Negative) Urine Ketones Negative (Negative) Urine Blood 2+ A (Negative) Urine Nitrate Negative (Negative) Urine Bilirubin 2+ A (Negative) Urine Urobilinogen Positive A (Negative) Ur Leukocyte Esterase Negative (Negative) Urine WBC (Auto) Trace(0-5/hpf) (Absent) Urine RBC (Auto) 3+(>10/hpf) A (Absent) Ur Squamous Epith Cells Present A (Absent) Urine Bacteria Absent (Absent) Urine Glucose Negative (Negative) Urine Ascorbic Acid * A (Negative) Assess/Plan/Problems-Billing Assessment: - Patient Problems (1) Pancreatic mass Current Visit: No Status: Acute Comment: Change hydoxyzine to scheduled. Cholestyramine might interfere with his other meds and make him constipated. Med compliance could be an issue for him. I spoke to Dr. Baeza 01/06 about a limited consult. I don't think the patient will ever consent to ERCP or stenting by any means. He is focused very strongly on "emulsification". I told him I don't think there is any hospital that offers this as treatment for his condition. I told him he would if his biliary obstruction was not relieved. (2) Schizophrenia Current Visit: No Status: Acute Code(s): F20.9 - SCHIZOPHRENIA, UNSPECIFIED SNOMED Code(s): 00629593 Comment: Consult requested to determine capacity to refuse SNF placement. (3) Afib Current Visit: No Status: Acute Code(s): I48.91 - UNSPECIFIED ATRIAL FIBRILLATION SNOMED Code(s): 60136175 Comment: Continue his usual meds. I don't think he had any of them for the recent period he was at [facility]. (4) DVT (deep venous thrombosis) Current Visit: Yes Status: Acute Code(s): I82.409 - ACUTE EMBOLISM AND THOMBOS UNSP DEEP VN UNSP LOWER EXTREMITY SNOMED Code(s): 642629523 Comment: Posterior peroneal calf vein thrombosed. Not a dabigatran failure as he was not taking it recently. Continue dabigatran. As of 01/07 he has not refused any of his ordered meds. Patient refuses my suggestion of a diuretic for his severe edema, suggests instead an antibiotic. I did advise him to elevate his legs during the day. Low sodium diet ordered.
[2019-01-07] MEDS: CMC:Dabigatran CAP(NF) 150 MG CAP PO SCH ×2 (08:43→23:13)
[2019-01-07] MEDS: Diltiazem CD CAP* 240 MG PO SCH ×2 (08:43→08:45)
[2019-01-07] MEDS: Metoprolol Tartrate TAB* 100 MG TAB PO SCH ×2 (08:44→23:12)
[2019-01-07] MEDS: Docusate CAP* 100 MG PO SCH ×3 (08:45→23:16)
[2019-01-07] MEDS: Digoxin TAB* 0.125 MG PO SCH (08:45)
[2019-01-07] MEDS: hydrOXYzine HCL TAB* 50 MG PO SCH ×4 (08:47→23:13)
--- NOTE | 2019-01-07 08:52 | PN ---
Progress Note - Progress Note Date of Service: 01/07/19 Note: I spoke to his sister, Alejandra Sanders (she is NOT his niece) and updated her on his condition and our management plan.
--- NOTE | 2019-01-07 11:43 | CONSULT ---
Consult Consult: Consult for Medical Decision Making Capacity S: Psychiatry is asked to evaluate capacity in this 58 y.o. single, white male with a history of schizophrenia and newly discovered pancreatic lesion, likely pancreatic cancer, who is currently admitted to the hospital custodially from the [facility] in [place], [place], where he has been a resident, due to their inability to care for him, as he has been refusing all medical and psychiatric treatments. The patient had a recent [facility] admission in late November for delusions and lack of self-care, however, antipsychotic treatment was eschewed due to concerns that it would complicate his medical picture after his pancreatic mass was discovered. The patient was subsequently transferred to [facility] in [place], [place] for medical care that was not immediately available here at [facility]. My understanding is that he refused care there and was discharged back to [facility]. Specifically, he is refusing diagnostic biopsy, endoscopy and stenting of his bile duct and therefore he is being referred for palliative care. The primary team is questioning if he has capacity to refuse hospice or SNF placement, now that [facility] is unwilling to allow him to return there, rendering him effectively homeless. On exam the patient is jaundiced and lying asleep in his bed on -. Following arousal he draws attention to his legs, complaining of swelling and asking "Why aren't you doing anything about my feet? I need an antibiotic." When asked about his pancreatic issues, he responds "I had 9 foreign bodies in my liver, including some graves pits. They've been removed. That problem is taken care of." He denies having a problem with his pancreas. I followed up by asking about placement, informing him that [facility] will not allow him to return. "I didn't like that place anyhow. Nobody was doing anything for me there." He refuses correction placement, saying that he will go to live with his ex-girlfriend Tomeka Jimenes in the [facility]. "Just discharge me. I'll take a bus home." He is unable to identify any of the risks of leaving AMA, such as poor management of atrial fibrillation, cancer pain and extention of his pancreatic lesion with associated liver failure and . O: large middle-aged white male with yellowed skin and eyes, bearded; dressed in patient gown; limited grooming; speech has slow rate but fluent; euthymic mood with a blunted affect; denies SI or HI; demonstrates mild paranoia at medical system and [facility] staff; insight and judgment poor given insistence on leaving the hospital without treatment or placement; asleep but easily arousable; oriented to place and time but not fully to situation A/P: Capacity: During our interaction, Mr. Prado failed to demonstrate a reasonable understanding of his illness and the events leading to hospitalization. He could not articulate what treatment has been recommended by his inpatient providers nor the associated risks of refusing said treatment. In my judgment, he lacks the capacity to make an informed decision about refusing SNF or hospice placement or leaving the hospital AMA. Capacity is subject to change in these situations and psychiatry can be re-consulted in the event of any changes in his presentation. We do not recommend antipsychotic therapy and the patient is refusing this and these medications are liver dependent and may complicate his medical picture. I have discussed my opinion with the patient and attending hospitalist, Dr. Putnam.
--- NOTE | 2019-01-07 20:34 | CONS ---
GASTROENTEROLOGY CONSULT: DATE OF CONSULT: 01/07/19 CONSULTING PHYSICIAN: Dr. Pelon Putnam. REASON FOR CONSULTATION: Intense jaundice and anorexia in a man with schizophrenia, who has not been taking his medications and who perceives he has foreign bodies in his stomach that require emulsification and that in any case his legs are his chief medical problem and is threatening to leave if they are not addressed promptly. HISTORY: Verified history (to the extent we can say) from [facility] and his sister. This 58-year-old resident of a [facility] in [place] has been evaluated over a couple of weeks for itching, jaundice, and uncontrolled schizophrenia. He had been living in [place], [place] at a home which felt they could not handle him as he had been destroying eisenberg in the bathrooms. He was thus transferred to a different facility [facility]. His previous medical care had apparently been mostly in [place], [place], and there is listed Dr. Jose Butcher, though none of his notes are available at this time. Known chronic diagnoses are paranoid schizophrenia, atrial fibrillation, hypertension, diabetes, COPD, and obstructive sleep apnea. Today's consultation was assisted by his sister, Alejandra Barth ([phone]), who keeps tabs on the patient regularly, though is not his official proxy stating "he would never sign for that." He apparently began itching and complaining about his legs a few weeks back. He was brought to the emergency room here on 12/23/18. He was delusional and was admitted to Psychiatry pending availability of ERCP here. His jaundice was evident, and CT scan showed a mass in the head of the pancreas. His bilirubin tono from 11 on admission through 18. He was transferred to [facility] where he apparently refused all care and there was an extensive discussion with ethics consult etc. To what extent he was deemed competent to refuse care is not certain. He was discharged back to his residence in [place]. He was there a short period of time and was deemed to be unsafe. There is documentation that he had called the police and was delusional. He was thus brought back to the emergency room here yesterday. A venous Doppler study was done showing a [id number] DVT. This was a followup from a study 2 weeks ago, which has just shown edema of the legs. He had been on Pradaxa, uncertain compliance, presumably because of a history of atrial fibrillation. Again, the notes from [facility] are not available. Here in the hospital, he has been deemed incompetent after a psychiatric consult by Dr. Shadi Chavarria. His outpatient psychiatric meds formulated when he was a resident of [facility] and living in [place] are not known. After a 4-day stay in the psychiatry unit here, his discharge summary lists 7 medications (from the [facility] list which apparently did not have access to [facility] records), though none appear to be psychiatric in orientation. Here he was given Atarax. His psychiatric list still remains unknown and there is uncertainty as to who has the legal right to access that list. He did sign a release for [facility] and for facilities in [facility] just a few minutes ago as todays RN gets on well with him and accomplished that. PAST MEDICAL HISTORY: 1. Paranoid schizophrenia. 2. Atrial fibrillation - no thromboembolic events known to me with a limited record. 3. Hypertension. 4. Diabetes - listed; however, his A1c was 4.9 on 12/25/18 and his glucose uniformly under 130 over the last 2 weeks. 5. COPD - no testing in our facility. 6. Obstructive sleep apnea - on a list only. 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 He tells me he won a triathelon 20 yrs ago. Today, he had said that his sister was a terrorist and she has not been participating in clarifying the history directly to the patient, but only via her knowledge of the other records. She felt entering his room would agitate him REVIEW OF SYSTEMS: No listed seizure, TIA, CVA, hemoptysis, cough, reported shortness of breath, vomiting, rectal bleeding. It is felt that he has likely not had a colonoscopy. There is no history of skin disease. PHYSICAL EXAM: He is a robustly built man, 229 pounds, estimated 5 feet 10 inches, speaking forcefully, initially sleeping soundly and then in a chair. He had no obvious lymphadenopathy. He said he did not want to be examined other than his legs. His lungs were clear to very limited exam. Heart sounds are irregular, but difficult to assess as again he deferred to examining the legs (brushed my hands away). His abdomen is mildly protuberant, firm, but not tender and again he distracted to the legs. He refused to get into bed and began to threaten violence, saying that if he did not get immediate treatment for the legs, he would leave. His voice began to growl. His legs are symmetric with 2+ edema and no active erythema focally. He has been afebrile throughout, blood pressure 109/56. DIAGNOSTIC STUDIES/LAB DATA: Imaging review - CT scans show a dilated biliary tree and a pancreatic head mass. There are no obvious signs of ascites or involvement of vascular structures. IMPRESSION: This 58-year-old man with schizophrenia, which is currently not under control as he is frankly delusional and has been deemed incompetent, has significant obstructive jaundice. The jaundice has resulted in itching, but so far his liver synthetic function is otherwise compensated. The natural history of this is uncertain as having jaundice of this type remaining unaddressed, is not common. Conventionally, he would be stented and surgery might be considered. I believe it is fair enough to say that with his uncertain digestive absorption, he will require parenteral treatment for his schizophrenia. if that is the plan chosen. Given the poor natural history of pancreatic cancer in general (CA19-9 level pending), a metal stent would be the favored choice if he can ever be rendered compliant and cooperative to undergo a procedure under general anesthesia. This is a very complex case. Discussed with Dr. Putnam, the staff nurse, and the patient's sister who clearly seems to be empathetic and stayed around for several hours to help facilitate exchange of information. [id number]/[facility] #: [id number] W[facility] HEIGHTS MEDICAL CENTERJudit
[2019-01-08] MEDS ORDERED: Morphine INJ* 2 MG/ML 1 ML SYRINGE (TWO MG - NEW SYRINGE VERSION) IV ONE (01:20)
--- NOTE | 2019-01-08 08:23 | PN ---
Subjective Date of Service: 01/08/19 Interval History: Patient again asks for cure of his swollen legs. He again refuses a diuretic. He asked me to look up "marketing executive's leg" on the internet and fiond the cure. I tole him I did not find anything about "marketing executive's leg" on the internet. Family History: Findings - unknown. Social History: Findings - Lives at [facility]. Kelin Veliz is his SDM. Quit smoking 8 yrs ago. No alcohol abuse. Past Medical History: Findings - WILL, paranoid schizophrenia, HTN, CKD, COPD, atrial fib, GERD, overactive bladder. Objective Active Medications: Dabigatran (Pradaxa Cap(Nf)) 150 mg PO BID [facility] Last Admin: 01/07/19 23:13 Dose: 150 mg Digoxin (Lanoxin Tab*) 0.125 mg PO DAILY [facility] Last Admin: 01/07/19 08:45 Dose: 0.125 mg Docusate Sodium (Colace Cap*) 100 mg PO BID [facility] Last Admin: 01/07/19 23:16 Dose: Not Given Hydroxyzine HCl (Atarax Tab*) 50 mg PO QID [facility] Last Admin: 01/07/19 23:13 Dose: 50 mg Metoprolol Tartrate (Lopressor Tab*) 100 mg PO BID [facility] Last Admin: 01/07/19 23:12 Dose: 100 mg Vital Signs - 8 hr 01/08/19 02:15 Temperature 97.7 F Pulse Rate 94 Respiratory 24 Rate Blood Pressure 115/80 (mmHg) O2 Sat by Pulse 100 Oximetry Oxygen Devices in Use Now: None Appearance: Head partly up in bed, resting comfortably, goes back to sleep after our conversation. Eyes: - - Marked jaundice Extremities: No Clubbing, Cyanosis, - - 3+ edema BL Skin: No Rash or Ulcers - faint erythema, mild excoriations, No Nodules or Sclerosis Result Diagrams: 01/06/19 12:40 01/06/19 12:40 Additional Lab and Data: Lab Results 01/06/19 01/06/19 Range/Units 12:22 12:40 WBC 7.7 (3.5-10.8) 10^3/uL RBC 3.46 L (4.18-5.48) 10^6 /uL Hgb 11.7 L (14.0-18.0) g/dL Hct 34 L (42-52) % MCV 97 H (80-94) fL MCH 34 H (27-31) pg MCHC 35 (31-36) g/dL RDW 22 H (10-15) % Plt Count 284 (150-450) 10^3/uL MPV 8.5 (7.4-10.4) fL Neut % (Auto) 81.7 % Lymph % (Auto) 6.6 % Edmunds % (Auto) 10.2 % Eos % (Auto) 0.8 % Baso % (Auto) 0.7 % Absolute Neuts (auto) 6.3 (1.5-7.7) 10^3/ul Absolute Lymphs (auto) 0.5 L (1.0-4.8) 10^3/ul Absolute Monos (auto) 0.8 (0-0.8) 10^3/ul Absolute Eos (auto) 0.1 (0-0.6) 10^3/ul Absolute Basos (auto) 0.1 (0-0.2) 10^3/ul Absolute Nucleated RBC 0.0 10^3/ul Nucleated RBC % 0.0 Urine Color Nadya Urine Appearance Cloudy Urine pH 6.0 (5-9) Ur Specific [place] 1.016 (1.010-1.030) Urine Protein Negative (Negative) Urine Ketones Negative (Negative) Urine Blood 2+ A (Negative) Urine Nitrate Negative (Negative) Urine Bilirubin 2+ A (Negative) Urine Urobilinogen Positive A (Negative) Ur Leukocyte Esterase Negative (Negative) Urine WBC (Auto) Trace(0-5/hpf) (Absent) Urine RBC (Auto) 3+(>10/hpf) A (Absent) Ur Squamous Epith Cells Present A (Absent) Urine Bacteria Absent (Absent) Urine Glucose Negative (Negative) Urine Ascorbic Acid * A (Negative) Microbiology and Other Data: Microbiology 01/06/19 12:22 Urine Culture - Final Urine No Growth (<1,000 CFU/mL) Assess/Plan/Problems-Billing Assessment: - Patient Problems (1) Pancreatic mass Current Visit: No Status: Acute Comment: Change hydoxyzine to scheduled. Cholestyramine might interfere with his other meds and make him constipated. Med compliance could be an issue for him. I spoke to Dr. Baeza 01/06 about a limited consult. I don't think the patient will ever consent to ERCP or stenting by any means. He is focused very strongly on "emulsification". I told him I don't think there is any hospital that offers this as treatment for his condition. I told him he would if his biliary obstruction was not relieved. (2) Schizophrenia Current Visit: No Status: Acute Code(s): F20.9 - SCHIZOPHRENIA, UNSPECIFIED SNOMED Code(s): 20569688 Comment: Psychiatrist stated that patient lacks capacity to refuse SNF placement. (3) Afib Current Visit: No Status: Acute Code(s): I48.91 - UNSPECIFIED ATRIAL FIBRILLATION SNOMED Code(s): 31465839 Comment: Continue his usual meds. I don't think he had any of them for the recent period he was at [facility]. (4) DVT (deep venous thrombosis) Current Visit: Yes Status: Acute Code(s): I82.409 - ACUTE EMBOLISM AND THOMBOS UNSP DEEP VN UNSP LOWER EXTREMITY SNOMED Code(s): 046975287 Comment: Posterior peroneal calf vein thrombosed. Not a dabigatran failure as he was not taking it recently. Continue dabigatran. As of 01/07 he has not refused any of his ordered meds. Patient refuses my suggestion of a diuretic for his severe edema, suggests instead an antibiotic. I did advise him to elevate his legs during the day. Low sodium diet ordered. (5) End of life care Current Visit: Yes Status: Acute Code(s): Z51.5 - ENCOUNTER FOR PALLIATIVE CARE SNOMED Code(s): 065409507 Comment: I spoke at length with his sister Alejandra and her on 01/07. She agrees on comfort care and we filled out the MOLST form.
[2019-01-08] MEDS: Digoxin TAB* 0.125 MG PO SCH (08:26)
[2019-01-08] MEDS: Docusate CAP* 100 MG PO SCH ×2 (08:26→20:55)
[2019-01-08] MEDS: CMC:Dabigatran CAP(NF) 150 MG CAP PO SCH ×2 (08:26→20:55)
[2019-01-08] MEDS: Metoprolol Tartrate TAB* 100 MG TAB PO SCH ×2 (08:27→20:55)
[2019-01-08] MEDS: hydrOXYzine HCL TAB* 50 MG PO SCH ×4 (08:27→21:30)
--- NOTE | 2019-01-08 10:41 | CONSULT ---
Consult Consult: Consultation request for Psychiatric treatment recommendations, and capacity for [facility]. 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 He did not acknowledge having any other medical illness. He reported that he doesnt need any procedures done because he just has a few graves pits in his stomach that need to pass. He reported speaking to his family. He denied taking psychiatric medications recently. At the current time the patient is requesting treatment for"loggers leg". He denied access to firearms or stockpiles of medications. The patient denied suicidal and or homicidal ideation intent or plan. The patient denied auditory and/ or visual hallucinations. PAST PSYCHIATRIC HISTORY: Prior Diagnosis : Schizophrenia History of past Psychiatric Hospitalizations: [facility], Recently discharged from [facility] in December 2018. History of past suicide/homicide attempts : Denied past suicide attempts. Denied past homicidal incidents. Outpatient follow-up: None Medications: Past trials of medications include zyprexa, haldol, depakote, abilify Guardianship: None. FAMILY HISTORY: - Suicide: Denied family history of suicide. - Mental illness: Denied a history of mental health in immediate family members. - Substance abuse: Brother has alcoholism SUBSTANCE ABUSE HISTORY: Denied using alcohol, tobacco, heroin cocaine or other illicit substances. Denied abusing pills for recreational use. Denied past Substance abuse treatment. SOCIAL HISTORY: Born in and raised in [facility]. He reported being and having 4 daughters. He is currently living at [facility]. 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 - Legal history: Denied - service history: Denied PAST MEDICAL HISTORY: Atrial fibrillation, hypertension, stage III CKD, type 2 diabetes, COPD, WILL, GERD, Pancreatic Mass - Allergies: Fluphenazine, heparin, ziprasidone Physical Exam: Please see ED note Mental Status Exam APPEARANCE : 58 year old who appears stated age. Patient appears to poor hygiene and grooming. BEHAVIOR: Cooperative , calm EYE CONTACT: Fair PSYCHOMOTOR ACTIVITY: No psychomotor agitation or retardation. MOVEMENTS: No abnormal movements observed. SPEECH : Normal rate, rhythm, volume and tone. MOOD : "Okay " AFFECT : Type is dysphoric. Range is blunted with shallow depth Mood Incongruent THOUGHT PROCESS: Formulated and organized in a illogical, manner. Tangential with loose associations , THOUGHT CONTENT: multiple delusions PERCEPTION: No current auditory or visual hallucinations. Doesnt appear to be responding to internal cues. SUICIDALITY Denied suicidal ideation, intent or plan. HOMICIDALITY Denied homicidal ideation, intent or plan. Insight/judgment: Poor insight and judgment ORIENTATION: Oriented to self, location, and time. Diagnosis: Schizophrenia Assessment: 58 year old male with history of schizophrenia and multiple medical co-morbidities currently being treated on the medical floor at [facility]. Plan # Continue medical management per medical team # The patient doesnt require psychiatric inpatient admission at this time # This patient lacks the capacity to participate in making medical decisions on his own, namely the MOLST. He is unable to appreciate the situation, and its consequences. He is unable to reasonably rationalize the reasons for refusing care. He is also unable to consider alterative treatment options. # Recommendations communicated to primary team # Start Risperdal 2mg qhs for delusions. # Psychiatry will continue to follow patient to monitor treatment response. #The risks, benefits, and alternative treatment options were discussed as well as of the risks of refusing treatment. Thank you for the consult. Brian Dunbar M.D. Vital Signs Temp Pulse Resp BP Pulse Ox 98.3 F 78 16 103/60 100 01/08/19 07:10 01/08/19 08:26 01/08/19 07:10 01/08/19 07:10 01/08/19 07:10 01/06/19 01/06/19 01/06/19 12:22 12:22 12:40 WBC 7.7 RBC 3.46 L Hgb 11.7 L Hct 34 L MCV 97 H MCH 34 H MCHC 35 RDW 22 H Plt Count 284 MPV 8.5 Neut % (Auto) 81.7 Lymph % (Auto) 6.6 Hoke % (Auto) 10.2 Eos % (Auto) 0.8 Baso % (Auto) 0.7 Absolute Neuts (auto) 6.3 Absolute Lymphs (auto) 0.5 L Absolute Monos (auto) 0.8 Absolute Eos (auto) 0.1 Absolute Basos (auto) 0.1 Absolute Nucleated RBC 0.0 Nucleated RBC % 0.0 INR (Anticoag Therapy) Sodium Potassium Chloride Carbon Dioxide Anion Gap BUN Creatinine Est GFR ( Amer) Est GFR (Non-Af Amer) BUN/Creatinine Ratio Glucose Calcium Total Bilirubin Direct Bilirubin Indirect Bilirubin AST ALT Alkaline Phosphatase B-Natriuretic Peptide Total Protein Albumin Globulin Albumin/Globulin Ratio TSH Urine Color Nadya Urine Appearance Cloudy Urine pH 6.0 Ur Specific [place] 1.016 Urine Protein Negative Urine Ketones Negative Urine Blood 2+ A Urine Nitrate Negative Urine Bilirubin 2+ A Urine Urobilinogen Positive A Ur Leukocyte Esterase Negative Urine WBC (Auto) Trace(0-5/hpf) Urine RBC (Auto) 3+(>10/hpf) A Ur Squamous Epith Cells Present A Urine Bacteria Absent Urine Glucose Negative Urine Ascorbic Acid * A Digoxin Salicylates Urine Opiates Screen None detected Acetaminophen Ur Barbiturates Screen None detected Ur Phencyclidine Scrn None detected Ur Amphetamines Screen None detected U Benzodiazepines Scrn None detected Urine Cocaine Screen None detected U Cannabinoids Screen None detected Serum Alcohol 01/06/19 01/06/19 01/06/19 12:40 12:40 12:43 WBC RBC Hgb Hct MCV MCH MCHC RDW Plt Count MPV Neut % (Auto) Lymph % (Auto) [place] % (Auto) Eos % (Auto) Baso % (Auto) Absolute Neuts (auto) Absolute Lymphs (auto) Absolute Monos (auto) Absolute Eos (auto) Absolute Basos (auto) Absolute Nucleated RBC Nucleated RBC % INR (Anticoag Therapy) Sodium 138 Potassium 4.1 Chloride 109 Carbon Dioxide 22 Anion Gap 7 BUN 38 H Creatinine 1.38 H Est GFR ( Amer) 64.3 Est GFR (Non-Af Amer) 53.1 BUN/Creatinine Ratio 27.5 H Glucose 86 Calcium 9.0 Total Bilirubin 32.10 H* 32.70 H* Direct Bilirubin 22.40 H Indirect Bilirubin 10.3 H AST 86 H ALT 78 H Alkaline Phosphatase 537 H B-Natriuretic Peptide 291 H Total Protein 5.1 L Albumin 3.1 L Globulin 2.0 Albumin/Globulin Ratio 1.6 TSH 1.85 Urine Color Urine Appearance Urine pH Ur Specific [place] Urine Protein Urine Ketones Urine Blood Urine Nitrate Urine Bilirubin Urine Urobilinogen Ur Leukocyte Esterase Urine WBC (Auto) Urine RBC (Auto) Ur Squamous Epith Cells Urine Bacteria Urine Glucose Urine Ascorbic Acid Digoxin 1.4 Salicylates < 2.50 Urine Opiates Screen Acetaminophen < 15 Ur Barbiturates Screen Ur Phencyclidine Scrn Ur Amphetamines Screen U Benzodiazepines Scrn Urine Cocaine Screen U Cannabinoids Screen Serum Alcohol < 10 01/06/19 16:12 WBC RBC Hgb Hct MCV MCH MCHC RDW Plt Count MPV Neut % (Auto) Lymph % (Auto) [place] % (Auto) Eos % (Auto) Baso % (Auto) Absolute Neuts (auto) Absolute Lymphs (auto) Absolute Monos (auto) Absolute Eos (auto) Absolute Basos (auto) Absolute Nucleated RBC Nucleated RBC % INR (Anticoag Therapy) 1.12 H Sodium Potassium Chloride Carbon Dioxide Anion Gap BUN Creatinine Est GFR ( Amer) Est GFR (Non-Af Amer) BUN/Creatinine Ratio Glucose Calcium Total Bilirubin Direct Bilirubin Indirect Bilirubin AST ALT Alkaline Phosphatase B-Natriuretic Peptide Total Protein Albumin Globulin Albumin/Globulin Ratio TSH Urine Color Urine Appearance Urine pH Ur Specific [place] Urine Protein Urine Ketones Urine Blood Urine Nitrate Urine Bilirubin Urine Urobilinogen Ur Leukocyte Esterase Urine WBC (Auto) Urine RBC (Auto) Ur Squamous Epith Cells Urine Bacteria Urine Glucose Urine Ascorbic Acid Digoxin Salicylates Urine Opiates Screen Acetaminophen Ur Barbiturates Screen Ur Phencyclidine Scrn Ur Amphetamines Screen U Benzodiazepines Scrn Urine Cocaine Screen U Cannabinoids Screen Serum Alcohol
--- NOTE | 2019-01-08 14:25 | CONSULT ---
Palliative / Hospice Consult Ordering Provider: Pelon Putnam Referal Reason: Goals of care - Subjective Code Status: DNR Advance Directives Location: No Advance Directives MOLST Part A Completed: Yes - completed with sister MOLST Part E Completed:: Yes - completed with sister - History or Present Illness History or Present Illness: 58yo male with paranoid schizophrenia presents from [facility] because he was refusing medications/treatments. PMH is WILL, HTN, CKD, COPD, afib, GERD, overactive bladder and pancreatic mass. 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 Studies show brain CT neg, CXR-COPD, ankle-no fx, +swelling, venous doppler- posterior peroneal calf vein is thrombosed, abd/pel CT-worsening biliary dilatation, pancreatic tumor, H/H 11.7/34, BUN/Cr38/1.38, egfr 53.1, Ca 9, t gary 32.7, alt 78, ast 86, tprot 5.1, alb 3.1 inr 1.12 and UC is negative. Pt admitted with pancreatic mass and elevated bilirubin. All history is from pt, sister and medical record. Lab Values: Laboratory Last Values WBC 7.7 10^3/uL (3.5-10.8) 01/06/19 12:40 RBC 3.46 10^6 /uL (4.18-5.48) L 01/06/19 12:40 Hgb 11.7 g/dL (14.0-18.0) L 01/06/19 12:40 Hct 34 % (42-52) L 01/06/19 12:40 MCV 97 fL (80-94) H 01/06/19 12:40 MCH 34 pg (27-31) H 01/06/19 12:40 MCHC 35 g/dL (31-36) 01/06/19 12:40 RDW 22 % (10-15) H 01/06/19 12:40 Plt Count 284 10^3/uL (150-450) 01/06/19 12:40 MPV 8.5 fL (7.4-10.4) 01/06/19 12:40 Neut % (Auto) 81.7 % 01/06/19 12:40 Lymph % (Auto) 6.6 % 01/06/19 12:40 [place] % (Auto) 10.2 % 01/06/19 12:40 Eos % (Auto) 0.8 % 01/06/19 12:40 Baso % (Auto) 0.7 % 01/06/19 12:40 Absolute Neuts (auto) 6.3 10^3/ul (1.5-7.7) 01/06/19 12:40 Absolute Lymphs (auto) 0.5 10^3/ul (1.0-4.8) L 01/06/19 12:40 Absolute Monos (auto) 0.8 10^3/ul (0-0.8) 01/06/19 12:40 Absolute Eos (auto) 0.1 10^3/ul (0-0.6) 01/06/19 12:40 Absolute Basos (auto) 0.1 10^3/ul (0-0.2) 01/06/19 12:40 Absolute Nucleated RBC 0.0 10^3/ul 01/06/19 12:40 Nucleated RBC % 0.0 01/06/19 12:40 INR (Anticoag Therapy) 1.12 (0.82-1.09) H 01/06/19 16:12 Sodium 138 mmol/L (135-145) 01/06/19 12:40 Potassium 4.1 mmol/L (3.5-5.0) 01/06/19 12:40 Chloride 109 mmol/L (101-111) 01/06/19 12:40 Carbon Dioxide 22 mmol/L (22-32) 01/06/19 12:40 Anion Gap 7 mmol/L (2-11) 01/06/19 12:40 BUN 38 mg/dL (6-24) H 01/06/19 12:40 Creatinine 1.38 mg/dL (0.67-1.17) H 01/06/19 12:40 Est GFR ( Amer) 64.3 (>60) 01/06/19 12:40 Est GFR (Non-Af Amer) 53.1 (>60) 01/06/19 12:40 BUN/Creatinine Ratio 27.5 (8-20) H 01/06/19 12:40 Glucose 86 mg/dL (70-100) 01/06/19 12:40 Calcium 9.0 mg/dL (8.6-10.3) 01/06/19 12:40 Total Bilirubin 32.70 mg/dL (0.2-1.0) H* 01/06/19 12:43 Direct Bilirubin 22.40 mg/dL (0.03-0.18) H 01/06/19 12:43 Indirect Bilirubin 10.3 mg/dL (0.3-1.0) H 01/06/19 12:43 AST 86 U/L (13-39) H 01/06/19 12:40 ALT 78 U/L (7-52) H 01/06/19 12:40 Alkaline Phosphatase 537 U/L (34-104) H 01/06/19 12:40 B-Natriuretic Peptide 291 pg/mL (<=100) H 01/06/19 12:40 Total Protein 5.1 g/dL (6.4-8.9) L 01/06/19 12:40 Albumin 3.1 g/dL (3.2-5.2) L 01/06/19 12:40 Globulin 2.0 g/dL (2-4) 01/06/19 12:40 Albumin/Globulin Ratio 1.6 (1-3) 01/06/19 12:40 TSH 1.85 mcIU/mL (0.34-5.60) 01/06/19 12:40 Urine Color Nadya 01/06/19 12:22 Urine Appearance Cloudy 01/06/19 12:22 Urine pH 6.0 (5-9) 01/06/19 12:22 Ur Specific [place] 1.016 (1.010-1.030) 01/06/19 12:22 Urine Protein Negative (Negative) 01/06/19 12:22 Urine Ketones Negative (Negative) 01/06/19 12:22 Urine Blood 2+ (Negative) A 01/06/19 12:22 Urine Nitrate Negative (Negative) 01/06/19 12: Urine Bilirubin 2+ (Negative) A 01/06/19 12:22 Urine Urobilinogen Positive (Negative) A 01/06/19 12:22 Ur Leukocyte Esterase Negative (Negative) 01/06/19 12:22 Urine WBC (Auto) Trace(0-5/hpf) (Absent) 01/06/19 12:22 Urine RBC (Auto) 3+(>10/hpf) (Absent) A 01/06/19 12:22 Ur Squamous Epith Cells Present (Absent) A 01/06/19 12:22 Urine Bacteria Absent (Absent) 01/06/19 12:22 Urine Glucose Negative (Negative) 01/06/19 12:22 Urine Ascorbic Acid * (Negative) A 01/06/19 12:22 Digoxin 1.4 ng/ml (0.8-2.0) 01/06/19 12:40 Salicylates < 2.50 mg/dL (<30) 01/06/19 12:40 Urine Opiates Screen None detected (None Detect) 01/06/19 12:22 Acetaminophen < 15 mcg/mL 01/06/19 12:40 Ur Barbiturates Screen None detected (None Detect) 01/06/19 12:22 Ur Phencyclidine Scrn None detected (None Detect) 01/06/19 12:22 Ur Amphetamines Screen None detected (None Detect) 01/06/19 12:22 U Benzodiazepines Scrn None detected (None Detect) 01/06/19 12:22 Urine Cocaine Screen None detected (None Detect) 01/06/19 12:22 U Cannabinoids Screen None detected (None Detect) 01/06/19 12:22 Serum Alcohol < 10 mg/dL (<10) 01/06/19 12:40 - Objective Active Medications: Dabigatran (Pradaxa Cap(Nf)) 150 mg PO BID [facility] Last Admin: 01/08/19 08:26 Dose: 150 mg Digoxin (Lanoxin Tab*) 0.125 mg PO DAILY [facility] Last Admin: 01/08/19 08:26 Dose: 0.125 mg Docusate Sodium (Colace Cap*) 100 mg PO BID [facility] Last Admin: 01/08/19 08:26 Dose: Not Given Furosemide (Lasix Tab*) 20 mg PO DAILY [facility] Hydroxyzine HCl (Atarax Tab*) 50 mg PO QID [facility] Last Admin: 01/08/19 08:27 Dose: 50 mg Metoprolol Tartrate (Lopressor Tab*) 100 mg PO BID [facility] Last Admin: 01/08/19 08:27 Dose: Not Given Risperidone (Risperdal-M Tab *) 2 mg PO 2100 [facility]; Protocol Vital Signs: Vital Signs: Temp Pulse Resp BP Pulse Ox 97.9 F 92 20 127/69 98 01/08/19 11:49 01/08/19 11:49 01/08/19 11:49 01/08/19 11:49 01/08/19 11:49 Patient Weight: Weight 103.873 kg Intake and Output: Intake & Output 01/06/19 01/07/19 01/08/19 01/09/19 06:59 06:59 06:59 06:59 Intake Total 480 2280 1680 Balance 480 2280 1680 Weight 103.873 kg Intake: Oral 480 2280 1680 Other: Estimated Void Medium Date of Last Bowel [id number] Movement # Bowel Movements 0 0 3 Estimated Stool Amount Medium # Voids 0 0 4 ADLs: Meal Record Start: 01/06/19 17: 52 Freq: DAILY@0900,1400,1800 Status: Active Protocol: Created 01/06/19 17:52 System (Rec: 01/06/19 17:52 System [id number]) Document 01/07/19 09:00 [id number] (Rec: 01/07/19 09:10 [id number] MED-C09) Document 01/07/19 13:37 [id number] (Rec: 01/07/19 13:38 [id number] MED-M21) Document 01/07/19 18:00 [id number] (Rec: 01/07/19 18:23 [id number] MED-C09) Document 01/08/19 09:00 [id number] (Rec: 01/08/19 10:34 [id number] MED-C09) Document 01/08/19 14:00 [id number] (Rec: 01/08/19 14:02 [id number] MED-C09) Intake and Output Start: 01/06/19 12: 04 Freq: Status: Active Protocol: Created 01/06/19 12:04 System (Rec: 01/06/19 12:04 System ED-C24) Intake and Output Start: 01/06/19 17: 52 Freq: DAILY@0600,1400,2200 Status: Active Protocol: Created 01/06/19 17:52 System (Rec: 01/06/19 17:52 System [id number]) Document 01/06/19 21:35 [id number] (Rec: 01/06/19 21:36 [id number] MED-C04) Document 01/07/19 05:31 [id number] (Rec: 01/07/19 05:32 [id number] MED-C04) Document 01/07/19 22:00 [id number] (Rec: 01/07/19 22:51 [id number] MED-C07) Document 01/08/19 05:55 [id number] (Rec: 01/08/19 05:57 [id number] MEDL-C02) Document 01/08/19 14:00 [id number] (Rec: 01/08/19 14:02 [id number] MED-C09) Head: Normal Eyes: - - Marked jaundice Ears/Nose/Mouth/Throat: NL Teeth, Lips, Gums Neck: NL Appearance and Movements; NL JVP Cardiovascular: NL Sounds; No Murmurs; No JVD, RRR, No Edema, - Extremities: No Clubbing, Cyanosis, - - 3+ edema BL - Assessment Assessment: 58yo male with paranoid schizophrenic presents with pancreatic mass suspect pancreatic cancer - Plan Consult Plan (MU): Hospice Plan: Met with pt but he is not coherent. Spoke with pt's sister Alejandra we reviewed the MOLST form and she has decided on DNR/DNI, comfort care, no feeding tube, no IV fluids and do not send back to hospital. Pt has been mentally ill for the last 20+ years his parents are and sister is his decision maker because he lacks capacity. Pt has been living at [facility] because he was unable to live independently. While living there he has been refusing all of his meds. He is hospice eligible based on the diagnosis of pancreatic mass with jaundice and refusing intervention although we do not have a tissue diagnosis. Ethics committee is meeting pertaining to pt and treatment options. Pt will need placement. KPS 50%, PPS 50% - Time On Unit Date of Evaluation: 01/08/19 Hospice Consult Time in: 13:30 Hospice Consult Time Out: 15:00 Hospice Consult Time Total: 90 > 50% of Time Spend In Counseling or Coordinating Care: Yes
[2019-01-08] MEDS ORDERED: risperiDONE-M * 1 MG TAB.ORADIS PO SCH (21:00)
--- NOTE | 2019-01-09 08:48 | CONSULT ---
Consult Consult: Consultation request for Psychiatric treatment recommendations, and capacity for MOLST. CC " I need a cure for my legs" The patient reported having manager training legs and is requesting a cure. According to the patient he went for a procedure last evening to remove a blockage from his pancreas however this unable to be confirmed with any electronic medical report. He denied nausea, vomiting. He mentioned getting better sleep overnight. He denied having any other medical illness. He reported taking his medications last evening and this was confirmed with EMR. He denied side effects from medication. The patient denied suicidal and or homicidal ideation intent or plan. The patient denied auditory and/ or visual hallucinations. Mental Status Exam APPEARANCE : 58 year old who appears stated age. Patient appears to poor hygiene and grooming. BEHAVIOR: Cooperative , calm EYE CONTACT: Fair PSYCHOMOTOR ACTIVITY: No psychomotor agitation or retardation. MOVEMENTS: No abnormal movements observed. SPEECH : Normal rate, rhythm, volume and tone. MOOD : "Fine" AFFECT : Type is dysphoric. Range is blunted with shallow depth Mood Incongruent THOUGHT PROCESS: Formulated and organized in a illogical, manner. Tangential with loose associations , THOUGHT CONTENT: multiple delusions PERCEPTION: No current auditory or visual hallucinations. Doesnt appear to be responding to internal cues. SUICIDALITY Denied suicidal ideation, intent or plan. HOMICIDALITY Denied homicidal ideation, intent or plan. Insight/judgment: Poor insight and judgment ORIENTATION: Oriented to self, location, and time. Diagnosis: Schizophrenia Assessment: 58 year old male with history of schizophrenia and multiple medical co-morbidities currently being treated on the medical floor at [facility]. Plan # Continue medical management per medical team # The patient doesnt require psychiatric inpatient admission at this time # This patient lacks the capacity to participate in making medical decisions on his own, namely the MOLST. He is unable to appreciate the situation, and its consequences. He is unable to reasonably rationalize the reasons for refusing care. He is also unable to consider alterative treatment options. # Recommendations communicated to primary team # Increase Risperdal 3mg qhs. # Psychiatry will sign off. Please call if you have any questions. #The risks, benefits, and alternative treatment options were discussed as well as of the risks of refusing treatment. Thank you for the consult. Brian Dunbar M.D.
[2019-01-09] MEDS: Docusate CAP* 100 MG PO SCH ×2 (10:25→21:21)
[2019-01-09] MEDS: hydrOXYzine HCL TAB* 50 MG PO SCH ×4 (10:25→21:21)
[2019-01-09] MEDS: CMC:Dabigatran CAP(NF) 150 MG CAP PO SCH (10:25)
[2019-01-09] MEDS: Furosemide TAB* 20 MG PO SCH (10:51)
[2019-01-09] MEDS: Digoxin TAB* 0.125 MG PO SCH (10:51)
[2019-01-09] MEDS: Metoprolol Tartrate TAB* 100 MG TAB PO SCH ×2 (10:53→21:22)
--- NOTE | 2019-01-09 12:03 | PN ---
Subjective Date of Service: 01/09/19 Interval History: Pt is feeling ok. He denies any pain at this time. He continues to have significant itching. He states his legs are heavy and it is hard to get to the bathroom. He believes his legs are swollen due to infection. He also refuses to believe that he has pancreatic cancer. Objective Active Medications: Digoxin (Lanoxin Tab*) 0.125 mg PO DAILY [facility] Last Admin: 01/09/19 10:51 Dose: 0.125 mg Docusate Sodium (Colace Cap*) 100 mg PO BID [facility] Last Admin: 01/09/19 10:25 Dose: Not Given Enoxaparin Sodium (Lovenox(*)) 100 mg SUBCUT Q12H [facility] Furosemide (Lasix Tab*) 20 mg PO DAILY [facility] Last Admin: 01/09/19 10:51 Dose: 20 mg Hydroxyzine HCl (Atarax Tab*) 50 mg PO QID [facility] Last Admin: 01/09/19 10:25 Dose: 50 mg Metoprolol Tartrate (Lopressor Tab*) 100 mg PO BID [facility] Last Admin: 01/09/19 10:53 Dose: Not Given Risperidone (Risperdal-M Tab *) 3 mg PO 2100 [facility]; Protocol Vital Signs - 8 hr 01/09/19 01/09/19 01/09/19 07:15 08:00 10:51 Temperature 97.3 F Pulse Rate 80 80 Respiratory 18 18 Rate Blood Pressure 99/48 (mmHg) O2 Sat by Pulse 100 Oximetry 01/09/19 11:15 Temperature 97.4 F Pulse Rate 89 Respiratory 20 Rate Blood Pressure 100/45 (mmHg) O2 Sat by Pulse 100 Oximetry Oxygen Devices in Use Now: None Appearance: Middle aged markedly jaundiced male sitting up in bed scratching his arms, NAD Eyes: - - icteric sclera Ears/Nose/Mouth/Throat: Mucous Membranes Moist Respiratory: Symmetrical Chest Expansion and Respiratory Effort, Clear to Auscultation Cardiovascular: NL Sounds; No Murmurs; No JVD, RRR, - - anasarca to the waist Abdominal: NL Sounds; No Tenderness; No Distention Extremities: No Clubbing, Cyanosis Skin: - - excoriations scattered across his body Neurological: - - increased delusions from the last time I saw him Result Diagrams: 01/06/19 12:40 01/06/19 12:40 Additional Lab and Data: Lab Results 01/06/19 01/06/19 Range/Units 12:22 12:40 WBC 7.7 (3.5-10.8) 10^3/uL RBC 3.46 L (4.18-5.48) 10^6 /uL Hgb 11.7 L (14.0-18.0) g/dL Hct 34 L (42-52) % MCV 97 H (80-94) fL MCH 34 H (27-31) pg MCHC 35 (31-36) g/dL RDW 22 H (10-15) % Plt Count 284 (150-450) 10^3/uL MPV 8.5 (7.4-10.4) fL Neut % (Auto) 81.7 % Lymph % (Auto) 6.6 % [place] % (Auto) 10.2 % Eos % (Auto) 0.8 % Baso % (Auto) 0.7 % Absolute Neuts (auto) 6.3 (1.5-7.7) 10^3/ul Absolute Lymphs (auto) 0.5 L (1.0-4.8) 10^3/ul Absolute Monos (auto) 0.8 (0-0.8) 10^3/ul Absolute Eos (auto) 0.1 (0-0.6) 10^3/ul Absolute Basos (auto) 0.1 (0-0.2) 10^3/ul Absolute Nucleated RBC 0.0 10^3/ul Nucleated RBC % 0.0 Urine Color Nadya Urine Appearance Cloudy Urine pH 6.0 (5-9) Ur Specific [place] 1.016 (1.010-1.030) Urine Protein Negative (Negative) Urine Ketones Negative (Negative) Urine Blood 2+ A (Negative) Urine Nitrate Negative (Negative) Urine Bilirubin 2+ A (Negative) Urine Urobilinogen Positive A (Negative) Ur Leukocyte Esterase Negative (Negative) Urine WBC (Auto) Trace(0-5/hpf) (Absent) Urine RBC (Auto) 3+(>10/hpf) A (Absent) Ur Squamous Epith Cells Present A (Absent) Urine Bacteria Absent (Absent) Urine Glucose Negative (Negative) Urine Ascorbic Acid * A (Negative) Microbiology and Other Data: Microbiology 01/06/19 12:22 Urine Culture - Final Urine No Growth (<1,000 CFU/mL) Assess/Plan/Problems-Billing Mr Prado is a 58 yo M who has a h/o paranoid schizophrenia who was diagnosed with probable pancreatic cancer at the end of November 2018 who now returns from [facility] after he refused to take his medications and is found to have a higher bilirubin than previous, lack of capacity and continued delusions. - Patient Problems (1) DVT (deep venous thrombosis) Current Visit: Yes Status: Acute Code(s): I82.409 - ACUTE EMBOLISM AND THOMBOS UNSP DEEP VN UNSP LOWER EXTREMITY SNOMED Code(s): 689828406 Comment: Posterior peroneal calf vein thrombosed. Not a dabigatran failure as he was not taking it recently however will switch to lovenox for DVT in the setting of active malignancy. Continue lasix for LE edema. (2) Pancreatic mass Current Visit: Yes Status: Acute Comment: Pts sister opted for comfort measures only. He will need to be placed at a NH for end of life care (though pt not actively dying at this time). He qualifies for hospice. Continue hydroxyzine for itching. ? ERCP for comfort (ie to help the itching). (3) Afib Current Visit: Yes Status: Acute Code(s): I48.91 - UNSPECIFIED ATRIAL FIBRILLATION SNOMED Code(s): 18883728 Comment: HR is controlled. Monitor BP as it is soft this AM on the metoprolol and lasix. (4) Paranoid schizophrenia Current Visit: Yes Status: Acute Code(s): F20.0 - PARANOID SCHIZOPHRENIA SNOMED Code(s): 37130447 Comment: Pt is on risperdal 3mg qHS. He is more delusional now than he was when I initially met him in November. (5) DNR (do not resuscitate) Current Visit: Yes Status: Acute
[2019-01-09] MEDS: risperiDONE-M * 1 MG TAB.ORADIS PO SCH ×2 (21:22→21:30)
[2019-01-09] MEDS: Enoxaparin(*) 100 MG/ML SYR SUBCUT SCH (21:29)
[2019-01-10] MEDS: hydrOXYzine HCL TAB* 50 MG PO SCH ×4 (08:11→20:33)
[2019-01-10] MEDS: Digoxin TAB* 0.125 MG PO SCH (08:11)
[2019-01-10] MEDS: Docusate CAP* 100 MG PO SCH ×2 (08:12→20:34)
[2019-01-10] MEDS: Enoxaparin(*) 100 MG/ML SYR SUBCUT SCH ×2 (08:13→20:34)
[2019-01-10] MEDS: Furosemide TAB* 20 MG PO SCH (08:13)
[2019-01-10] MEDS: Metoprolol Tartrate TAB* 100 MG TAB PO SCH (08:21)
[2019-01-10 11:08] LABS: Albumin 2.8 g/dL (3.2-5.2); Potassium 3.5 mmol/L (3.5-5.0)
[2019-01-10 11:13] LABS: Hematocrit 32 % (42-52); Mean Corpuscular HGB Conc 35 g/dL (31-36); Mean Corpuscular Hemoglobin 34 pg (27-31); Mean Corpuscular Volume 98 fL (80-94); Mean Platelet Volume 8.7 fL (7.4-10.4); Platelet Count 247 10^3/uL (150-450); Red Blood Count 3.23 10^6 /uL (4.18-5.48); Red Cell Distribution Width 21 % (10-15); White Blood Count 7.9 10^3/uL (3.5-10.8)
[2019-01-10 11:14] LABS: Albumin/Globulin Ratio 1.6 (1-3); BUN/Creatinine Ratio 22.1 (8-20); EGFR African American 60.7 (>60); EGFR Non-African American 50.2 (>60); Globulin 1.8 g/dL (2-4); Total Protein 4.6 g/dL (6.4-8.9)
[2019-01-10 11:35] LABS: Indirect Bilirubin 8.4 mg/dL (0.3-1.0); Total Bilirubin 29.8 mg/dL (0.2-1.0)
--- NOTE | 2019-01-10 12:40 | PN ---
Subjective Date of Service: 01/10/19 Interval History: Pt is feeling ok. He continues to itch. He refused some of his medications today because he tells me that a previous provider discontinued them. He refuses diuretic for his legs due to his delusion that the legs are large due to "infection." Objective Active Medications: Digoxin (Lanoxin Tab*) 0.125 mg PO DAILY [facility] Last Admin: 01/10/19 08:11 Dose: 0.125 mg Docusate Sodium (Colace Cap*) 100 mg PO BID [facility] Last Admin: 01/10/19 08:12 Dose: Not Given Enoxaparin Sodium (Lovenox(*)) 100 mg SUBCUT Q12H [facility] Last Admin: 01/10/19 08:13 Dose: Not Given Furosemide (Lasix Tab*) 20 mg PO DAILY [facility] Last Admin: 01/10/19 08:13 Dose: Not Given Hydroxyzine HCl (Atarax Tab*) 50 mg PO QID [facility] Last Admin: 01/10/19 08:11 Dose: 50 mg Metoprolol Tartrate (Lopressor Tab*) 100 mg PO BID [facility] Last Admin: 01/10/19 08:21 Dose: Not Given Risperidone (Risperdal-M Tab *) 3 mg PO 2100 [facility]; Protocol Last Admin: 01/09/19 21:30 Dose: Not Given Vital Signs - 8 hr 01/10/19 01/10/19 01/10/19 07:54 08:11 10:33 Temperature 99.0 F Pulse Rate 79 76 Respiratory 18 16 Rate Blood Pressure 94/55 (mmHg) O2 Sat by Pulse 96 Oximetry 01/10/19 11:40 Temperature 98.2 F Pulse Rate 84 Respiratory 17 Rate Blood Pressure 108/60 (mmHg) O2 Sat by Pulse 98 Oximetry Oxygen Devices in Use Now: None Appearance: Middle aged markedly jaundiced male sitting up in bed, NAD Eyes: No Scleral Icterus Ears/Nose/Mouth/Throat: Mucous Membranes Moist Respiratory: Symmetrical Chest Expansion and Respiratory Effort, Clear to Auscultation Cardiovascular: NL Sounds; No Murmurs; No JVD, RRR, - - + anasarca to the waist Abdominal: NL Sounds; No Tenderness; No Distention Extremities: No Clubbing, Cyanosis Skin: No Nodules or Sclerosis Neurological: - - alert, fixed delusions Result Diagrams: 01/10/19 10:39 01/10/19 10:39 Additional Lab and Data: Lab Results 01/06/19 01/06/19 Range/Units 12:22 12:40 WBC 7.7 (3.5-10.8) 10^3/uL RBC 3.46 L (4.18-5.48) 10^6 /uL Hgb 11.7 L (14.0-18.0) g/dL Hct 34 L (42-52) % MCV 97 H (80-94) fL MCH 34 H (27-31) pg MCHC 35 (31-36) g/dL RDW 22 H (10-15) % Plt Count 284 (150-450) 10^3/uL MPV 8.5 (7.4-10.4) fL Neut % (Auto) 81.7 % Lymph % (Auto) 6.6 % [place] % (Auto) 10.2 % Eos % (Auto) 0.8 % Baso % (Auto) 0.7 % Absolute Neuts (auto) 6.3 (1.5-7.7) 10^3/ul Absolute Lymphs (auto) 0.5 L (1.0-4.8) 10^3/ul Absolute Monos (auto) 0.8 (0-0.8) 10^3/ul Absolute Eos (auto) 0.1 (0-0.6) 10^3/ul Absolute Basos (auto) 0.1 (0-0.2) 10^3/ul Absolute Nucleated RBC 0.0 10^3/ul Nucleated RBC % 0.0 Urine Color Nadya Urine Appearance Cloudy Urine pH 6.0 (5-9) Ur Specific [place] 1.016 (1.010-1.030) Urine Protein Negative (Negative) Urine Ketones Negative (Negative) Urine Blood 2+ A (Negative) Urine Nitrate Negative (Negative) Urine Bilirubin 2+ A (Negative) Urine Urobilinogen Positive A (Negative) Ur Leukocyte Esterase Negative (Negative) Urine WBC (Auto) Trace(0-5/hpf) (Absent) Urine RBC (Auto) 3+(>10/hpf) A (Absent) Ur Squamous Epith Cells Present A (Absent) Urine Bacteria Absent (Absent) Urine Glucose Negative (Negative) Urine Ascorbic Acid * A (Negative) Microbiology and Other Data: Microbiology 01/06/19 12:22 Urine Culture - Final Urine No Growth (<1,000 CFU/mL) Assess/Plan/Problems-Billing Mr Prado is a 58 yo M who has a h/o paranoid schizophrenia who was diagnosed with probable pancreatic cancer at the end of November 2018 who now returns from [facility] after he refused to take his medications and is found to have a higher bilirubin than previous, lack of capacity and continued delusions. - Patient Problems (1) DVT (deep venous thrombosis) Current Visit: Yes Status: Acute Code(s): I82.409 - ACUTE EMBOLISM AND THOMBOS UNSP DEEP VN UNSP LOWER EXTREMITY SNOMED Code(s): 836925820 Comment: Possible posterior peroneal calf vein thrombosis. Continue lovenox for DVT in setting of active malignancy. (2) Pancreatic mass Current Visit: Yes Status: Acute Comment: Pts sister opted for comfort measures only. He will need to be placed at a NH for end of life care (though pt not actively dying at this time). He qualifies for hospice with highly likely pancreatic cancer (CA19-9 markedly elevated >300 though no tissue diagnosis). Continue hydroxyzine for itching. Pts sister previously did not want ERCP against the patient's will despite him not having capacity to make decisions. (3) Afib Current Visit: Yes Status: Acute Code(s): I48.91 - UNSPECIFIED ATRIAL FIBRILLATION SNOMED Code(s): 89450784 Comment: HR is controlled. Monitor BP as it is soft. Reduce metoprolol dose to 12.5mg BID with hold parameters. (4) Paranoid schizophrenia Current Visit: Yes Status: Acute Code(s): F20.0 - PARANOID SCHIZOPHRENIA SNOMED Code(s): 29837647 Comment: Pt is on risperdal 3mg qHS. (5) DNR (do not resuscitate) Current Visit: Yes Status: Acute
[2019-01-10] MEDS: Metoprolol Tartrate TAB* 25 MG PO SCH (20:33)
[2019-01-10] MEDS: risperiDONE-M * 1 MG TAB.ORADIS PO SCH (20:34)
[2019-01-11] MEDS ORDERED: Ondansetron INJ* 2 MG/ML VIAL IV ONE (00:15)
[2019-01-11] MEDS ORDERED: Ondansetron TAB* 4 MG PO ONE (00:30)
[2019-01-11] MEDS: Docusate CAP* 100 MG PO SCH ×2 (00:32→11:00)
[2019-01-11] MEDS: Enoxaparin(*) 100 MG/ML SYR SUBCUT SCH (10:12)
[2019-01-11] MEDS: Furosemide TAB* 20 MG PO SCH (10:12)
[2019-01-11] MEDS: Metoprolol Tartrate TAB* 25 MG PO SCH (10:13)
[2019-01-11] MEDS: Digoxin TAB* 0.125 MG PO SCH (10:14)
[2019-01-11] MEDS: hydrOXYzine HCL TAB* 50 MG PO SCH (10:14)
--- NOTE | 2019-01-11 11:44 | DS ---
CC: Bianka * DATE OF ADMISSION: 01/06/2019. DATE OF DISCHARGE: 01/11/2019. PRIMARY CARE PHYSICIAN: Unknown. PRINCIPAL DIAGNOSES: 1. Probable pancreatic cancer with obstructive jaundice. 2. Paranoid schizophrenia. SECONDARY DIAGNOSES: 1. Atrial fibrillation. 2. Bilateral lower extremity edema. 3. Possible right peroneal vein thrombosis. DISCHARGE MEDICATIONS: 1. Colace 100 mg p.o. b.i.d. 2. Digoxin 0.125 mg p.o. daily. 3. Risperdal 3 mg p.o. at bedtime. 4. Hydroxyzine 50 mg p.o. 4 times daily prn itching. 5. Metoprolol Tartrate 12.5 mg p.o. b.i.d., hold for systolic blood pressure less than 95. 6. Lasix 20 mg p.o. daily, hold for systolic blood pressure less than 95. 7. Lovenox 100 mg subcutaneous q.12 hours. HOSPITAL COURSE: Mr. Prado is a 58-year-old male with a history of paranoid schizophrenia who was found at the end of November to have a pancreatic mass and obstructive jaundice. He was hospitalized initially at [facility] [place] and subsequently transferred to [facility] for possible endoscopic ultrasound and biopsy of the pancreatic mass. The patient ultimately refused this procedure and an ethics committee was held. Ultimately, the decision was made by the patient's sister to not overrule the patient's wishes despite him not having capacity to truly understand his situation. The patient was discharged from [facility] back to [facility]. The patient was refusing medications at the [facility] and was sent back to [facility] [place]. The patient underwent repeat abdomen and pelvis CT. This revealed significant interval worsening of the severe intra- and extrahepatic biliary dilation compared with the 2018 exam. This is likely secondary to local extension of the pancreatic tumor or satellite lesion at the ampulla. Over the course of the next several days, Abundio again continued to refuse ERCP. He was seen in consultation by both Psychiatry, Gastroenterology, and Palliative Care. Psychiatry deemed the patient to not have capacity to make medical decisions. Again, the patient's sister who by [facility] law is the patient's surrogate decision maker has agreed to not overrule the patient's wishes and force him into an ERCP. Ultimately, the patient's sister wishes for do not resuscitate, do not intubate , comfort measures only, no feeding tube, no IV fluids, not sending the patient to the hospital unless there are symptoms that cannot otherwise be controlled, and to use antibiotics on a very limited basis. The patient has been given a bed offer at [facility]. The patient will be discharged there today, 01/11/2019. A hospice referral should be made upon the patient arriving to [facility]. PHYSICAL EXAMINATION: On the day of discharge, the patient is awake, he is alert, he is oriented to place. He is marked jaundice. He is seen scratching all over. His cardiac exam revealed a normal S1, S2. Heart rate was controlled. There was marked anasarca to the bilateral lower extremity up to the waist. Lungs are clear anteriorly. Abdomen is soft, nontender, nondistended. FOLLOW-UP CONCERNS: The patient is being discharged to [facility] today, 2018. Again, a hospice referral should be made as soon as the patient arrives to [facility]. While no tissue diagnosis has been made, the patient has an elevated CA19-9 of 363. This is markedly elevated and likely confirmed the diagnosis of pancreatic cancer. ACTIVITY LEVEL: As tolerated. DIET: Regular as tolerated. CONDITION ON DISCHARGE: Guarded, but stable. TIME SPENT: Thirty-five minutes were spent discharging this patient. [id number]/[facility] #: [id number] IMER
[2019-01-11 13:52] VITALS: BP 91/66
== END 2019-01-11 12:50 | DRG 435 ==
LOC: ED 11:56 → MED 17:06 → OBSVTOIN 01-07 16:00
PROVIDERS: ADMIT Internal Medicine; ATTEND Hospitalist
DX: C25.9 Malignant neoplasm of pancreas, unspecified (principal); K83.1 Obstruction of bile duct; F20.0 Paranoid schizophrenia; I82.491 Acute embolism and thrombosis of other specified deep vein of right lower extremity; E11.22 Type 2 diabetes mellitus with diabetic chronic kidney disease; N18.3 Chronic kidney disease, stage 3 (moderate); I12.9 Hypertensive chronic kidney disease with stage 1 through stage 4 chronic kidney disease, or unspecified chronic kidney disease; J44.9 Chronic obstructive pulmonary disease, unspecified; K21.9 Gastro-esophageal reflux disease without esophagitis; N32.81 Overactive bladder; Z66 Do not resuscitate; I48.91 Unspecified atrial fibrillation; G47.33 Obstructive sleep apnea (adult) (pediatric); Z51.5 Encounter for palliative care; Z88.8 Allergy status to other drugs, medicaments and biological substances; Z79.899 Other long term (current) drug therapy; Z87.891 Personal history of nicotine dependence; Z81.1 Family history of alcohol abuse and dependence; Z79.84 Long term (current) use of oral hypoglycemic drugs
CPT/HCPCS: 36415; 70450; 71046; 74177; 80048; 80053; 80076; 80162; 80307; 80320; 80329; 81003; 81015; 82247; 82248; 83880; 84443; 85025; 85027; 85610; 86301; 87086; 99284; A9270-GY; G0378; G0480; J1650; Q9967